=== PATIENT | female | born 1950 | race Caucasian/White ===

== ENCOUNTER 2016-08-30 03:43 | Inpatient (IN) | payer BC, OTHER ==
[2016-08-30 04:06] VITALS: BMI 39.6
[2016-08-30] MEDS ORDERED: KETOROLAC TROMETHAMINE 30 MG/1 ML VIAL IVPUSH ONE (04:13)
--- NOTE | 2016-08-30 04:13 | PDOC ---
History of Present Illness <Marquise Alcantara - Last Filed: 08/30/16 07:02> - History of Present Illness Initial Comments: 08/30/16 04:58 The patient is a 66 year old female, with a significant past medical history of COPD, hypertension, cardiac stents, diabetes, UTI, and kidney stones, who presents to the emergency department with left flank pain and nausea today. She reports this pain feels just like her experience with kidney stones, however, states she has never had a kidney stone to the left side. She reports a couple episodes of vomiting today. She denies chest pain, shortness of breath, headache and dizziness. She denies fever, chills, diarrhea and constipation. She denies dysuria, frequency, urgency and hematuria. Allergies: ciprofloxacin, nitrofurantoin, latex Social history: former tobacco use <Gilda Marie - Last Filed: 08/30/16 07:05> - General Chief Complaint: Pain Stated Complaint: STOMACH ACHE/BACK PAIN Past History - Past Medical History COPD: Yes Diabetes: Yes HTN: Yes - Surgical History Appendectomy: Yes Cholecystectomy: Yes - Psycho/Social/Smoking Cessation Hx Suicidal Ideation: No Smoking History: Never smoked Have you smoked in the past 12 months: No If you are a former smoker, when did you quit?: 8 years ago Information on smoking cessation initiated: No Hx Alcohol Use: No Drug/Substance Use Hx: No Substance Use Type: None <Marquise Alcantara - Last Filed: 08/30/16 07:02> <Gilda Marie - Last Filed: 08/30/16 07:05> - Past Medical History Allergies/Adverse Reactions: Allergies Allergy/AdvReac Type Severity Reaction Status Date / Time ciprofloxacin [From Cipro] Allergy Severe Verified 08/30/16 04:02 ciprofloxacin HCl Allergy Severe Verified 08/30/16 04:02 [From Cipro] nitrofurantoin Allergy Severe Verified 08/30/16 04:02 ticagrelor [From Brilinta] Allergy Severe Verified 08/30/16 05:00 latex Allergy Verified 08/30/16 04:05 sulfamethoxazole Allergy Verified 08/30/16 05:00 [From Bactrim] trimethoprim [From Bactrim] Allergy Verified 08/30/16 05:00 Home Medications: Ambulatory Orders Metoprolol Succinate 50 mg PO DAILY 01/14/14 Glipizide [Glipizide ER] 5 mg PO BID 08/15/15 Metformin HCl [Glucophage] 1,000 mg PO BID 08/15/15 Pantoprazole Sodium [Protonix -] 20 mg PO DAILY #20 tablet.ec 08/21/15 Aspirin [ASA -] 81 mg PO DAILY 08/30/16 Insulin Degludec [Tresiba Flextouch U-100] 80 unit SQ ASDIR 08/30/16 Rosuvastatin [Crestor -] 5 mg PO HS 08/30/16 Review of Systems - Review of Systems Able to Perform ROS?: Yes Comments:: 08/30/16 04:59 CONSTITUTIONAL: Absent: fever, chills, diaphoresis, generalized weakness, malaise, loss of appetite HEENT: Absent: rhinorrhea, nasal congestion, throat pain, throat swelling, difficulty swallowing, mouth swelling, ear pain, eye pain, visual Changes CARDIOVASCULAR: Absent: chest pain, syncope, palpitations, irregular heart rate, lightheadedness , peripheral edema RESPIRATORY: Absent: cough, shortness of breath, dyspnea with exertion, orthopnea, wheezing, stridor, hemoptysis GASTROINTESTINAL: (+) nausea, vomiting. Absent: abdominal pain, abdominal distension, diarrhea, constipation, melena, hematochezia GENITOURINARY: (+) Left flank pain. Absent: dysuria, frequency, urgency, hesitancy, hematuria, genital pain MUSCULOSKELETAL: Absent: myalgia, arthralgia, joint swelling SKIN: Absent: rash, itching, pallor HEMATOLOGIC/IMMUNOLOGIC: Absent: easy bleeding, easy bruising, lymphadenopathy, frequent infections ENDOCRINE: Absent: unexplained weight gain, unexplained weight loss, heat intolerance, cold intolerance NEUROLOGIC: Absent: headache, focal weakness or paresthesias, dizziness, unsteady gait, seizure, mental status changes, bladder or bowel incontinence PSYCHIATRIC: Absent: anxiety, depression, suicidal or homicidal ideation, hallucinations. <Gilda Marie - Last Filed: 08/30/16 07:05> *Physical Exam - Vital Signs Last Vital Signs Temp Pulse Resp BP Pulse Ox 98.4 F 70 14 165/73 93 L 08/30/16 04:03 08/30/16 04:03 08/30/16 04:03 08/30/16 04:03 08/30/16 04:03 <Marquise Alcantara - Last Filed: 08/30/16 07:02> - Vital Signs Last Vital Signs Temp Pulse Resp BP Pulse Ox 98.4 F 70 14 165/73 93 L 08/30/16 04:03 08/30/16 04:03 08/30/16 04:03 08/30/16 04:03 08/30/16 04:03 - Physical Exam Comments: 08/30/16 05:00 GENERAL: Well developed, well nourished. Awake and alert. No acute distress. HEENT: Normocephalic, atraumatic. PERRLA, EOMI. No conjunctival pallor. Sclera are non- icteric. Moist mucous membranes. Oropharynx is clear. NECK: Supple. Full ROM. No JVD. Carotid pulses 2+ and symmetric, without bruits. No thyromegaly. No lymphadenopathy. CARDIOVASCULAR: Regular rate and rhythm. No murmurs, rubs, or gallops. Distal pulses are 2+ and symmetric. PULMONARY: No evidence of respiratory distress. Lungs clear to auscultation bilaterally. No wheezing, rales or rhonchi. ABDOMINAL: Soft. Non-tender. Non-distended. No rebound or guarding. No organomegaly. Normoactive bowel sounds. MUSCULOSKELETAL (+) Left CVA tenderness. Normal range of motion at all joints. No bony deformities or tenderness. EXTREMITIES: No cyanosis. No clubbing. No edema. No calf tenderness. SKIN: Warm and dry. Normal capillary refill. No rashes. No jaundice. NEUROLOGICAL: Alert, awake, appropriate. Cranial nerves 2-12 intact. Normoreflexic in the upper and lower extremities. Normal speech. Toes are down-going bilaterally. Gait is normal without ataxia. PSYCHIATRIC: Cooperative. Good eye contact. Appropriate mood and affect. <Gilda Marie - Last Filed: 08/30/16 07:05> ED Treatment Course - LABORATORY CBC & Chemistry Diagram: 08/30/16 04:21 08/30/16 04:21 <Marquise Alcantara - Last Filed: 08/30/16 07:02> - LABORATORY CBC & Chemistry Diagram: 08/30/16 04:21 08/30/16 04:21 - RADIOLOGY Radiograph Interpretation: 08/30/16 06:48 EXAM: CT abdomen and pelvis without contrast was read by Dusty Ramires at 06:27 EST FINDINGS: Positive for a 3.3 mm distal left ureteral stone approximately 2.5 cm proximal to the left UVJ. It obstructs and causes moderate left hydronephrosis/ hydroureter with perinephric stranding. There are also nonobstructing left renal stones. Nonobstructing right renal stones noted but no right urinary tract obstruction. There are also few stones in the posterior urinary bladder lumen measuring in the 2.75-3 cm range. They may have passed previously from the ureters. Note made of a fatty liver. Periumbilical hernia containing no bowel. Sigmoid/left colon diverticulosis. No diverticulitis. No other acute intra-abdominal abnormalities. - Medications Given in the ED: ED Medications Discontinued Medications Generic Name Dose Route Start Last Admin Trade Name Freq PRN Reason Stop Dose Admin Ketorolac Tromethamine 30 mg 08/30/16 04:13 08/30/16 04:55 Toradol Injection - IVPUSH 08/30/16 04:14 30 mg ONCE ONE Administration <Gilda Marie - Last Filed: 08/30/16 07:05> Medical Decision Making - Medical Decision Making 08/30/16 06:47 Dr. Robb was paged at this time requesting a callback for doctor to doctor consult. 08/30/16 07:04 Dr. Robb returned the call at this time and the patient's case was discussed. He accepts the patient's admission with consult to urologist Dr. Jameson. <Gilda Marie - Last Filed: 08/30/16 07:05> *DC/Admit/Observation/Transfer - Discharge Dispostion Admit: Yes <Marquise Alcantara - Last Filed: 08/30/16 07:02> - Attestations Scribe Attestion: 08/30/16 05:01 Documentation prepared by Gilda Marie, acting as medical insurance coding specialist for Marquise Alcantara MD, MD <Gilda Marie - Last Filed: 08/30/16 07:05> Diagnosis at time of Disposition: Renal colic on left side - Referrals Referrals: Rosendo Monzon MD [Primary Care Provider] -
[2016-08-30] MEDS ORDERED: KETOROLAC TROMETHAMINE 30 MG/1 ML VIAL ONE (04:39)
[2016-08-30] MEDS: SODIUM CHLORIDE 1,000 ML IV SCH ×2 (04:55→20:01)
[2016-08-30 05:00] LABS: BASOPHIL 1.5 % (0-2.0); EOSINOPHIL 1.1 % (0-4.5); MCH 29.3 pg (25.7-33.7); MCHC 33.2 g/dl (32.0-36.0); MEAN CELL VOLUME 88.2 fl (80-96); MEAN PLT VOLUME 8.9 fl (7.5-11.1); NEUTROPHILS 69.9 % (42.8-82.8); PLATELET COUNT 168 K/MM3 (134-434); RDW 14.1 % (11.6-15.6); WHITE BLOOD COUNT 12.3 K/mm3 (4.0-10.0)
[2016-08-30] MEDS ORDERED: ONDANSETRON 4 MG/2 ML VIAL IVPUSH ONE (05:14)
[2016-08-30 05:24] LABS: ALBUMIN 3.7 g/dl (3.4-5.0); BILIRUBIN,TOTAL 0.6 mg/dL (0.2-1.0); CREATININE 1.3 mg/dL (0.55-1.02); TOT PROT 6.9 g/dl (6.4-8.2)
[2016-08-30] MEDS ORDERED: ONDANSETRON 4 MG/2 ML VIAL ONE (05:42)
[2016-08-30] MEDS ORDERED: CEFTRIAXONE 1,000 MG in DEXTROSE 5%-WATER - 50 ML IVPB ONE (06:56)
[2016-08-30] MEDS ORDERED: TAMSULOSIN HCL 0.4 MG CAP.ER.24H (FP) PO ONE (06:59)
[2016-08-30 07:15] LABS: URINE APPEARANCE CLOUDY; URINE BILIRUBIN NEGATIVE (NEGATIVE); URINE COLOR RED; URINE GLUCOSE (UA) 2+ (NEGATIVE); URINE KETONE NEGATIVE (NEGATIVE); URINE LEUK ESTERASE NEGATIVE (NEGATIVE); URINE NITRITE NEGATIVE (NEGATIVE); URINE UROBILINOGEN NEGATIVE E.U./dl (0.2-1.0)
[2016-08-30] MEDS ORDERED: TAMSULOSIN HCL 0.4 MG CAP.ER.24H (FP) ONE (07:42)
[2016-08-30] MEDS ORDERED: CEFTRIAXONE 50 ML ONE (07:43)
[2016-08-30 08:25] LABS: URINE BLOOD 3+ (NEGATIVE); URINE PROTEIN 2+ (NEGATIVE)
[2016-08-30 08:30] LABS: URINE BACTERIA RARE /hpf (NONE SEEN); URINE MUCUS RARE; URINE RBC 515 /hpf (0-3); URINE WBC 83 /hpf (3-5); YEAST MANY
[2016-08-30] MEDS ORDERED: oxyCODONE HCL 5 MG TABLET PO PRN (09:20)
[2016-08-30] MEDS ORDERED: morphine CARPU-JECT 2 MG/1 ML DISP.SYRIN IVPUSH PRN (09:24)
--- NOTE | 2016-08-30 09:26 | HP ---
Admitting History and Physical - Primary Care Physician PCP: Rosendo Monzon - Smoking History Smoking history: Never smoked Have you smoked in the past 12 months: No If you are a former smoker, when did you quit?: 8 years ago - Alcohol/Substance Use Hx Alcohol Use: No <Emelyn Robb - Last Filed: 08/30/16 09:25> - Primary Care Physician PCP: Rosendo Monzon - Admission Chief Complaint: Flank pain History of Present Illness: The patient is a 66 year old female, with a significant past medical history of COPD, hypertension, recent cardiac stents (2016-- patient unaware which type of stents and pt is on aspirin and plavix for the same), diabetes, UTI, and kidney stones, who presented to the emergency department with left flank pain and nausea. She reports this pain feels just like her experience with kidney stones , however, states she has never had a kidney stone to the left side. She reports a couple episodes of vomiting prior to ED presentation. She denies chest pain, shortness of breath, headache and dizziness. She denies fever, chills, diarrhea and constipation. She denies dysuria, frequency, urgency and hematuria. Patient found to have L ureter stone. Patient given abx, fluids as well as pain medications. Patient admitted to the floor. Urology consult also requested. Pt seen by me on the floor. Feels better with the pain. Chart reviewed. Denies fevers or chills. No headache or dizziness. History Source: Patient <Rachel Engel - Last Filed: 08/30/16 10:12> Home Medications <Emelyn Robb - Last Filed: 08/30/16 09:25> <Rachel Engel - Last Filed: 08/30/16 10:12> - Allergies Allergies/Adverse Reactions: Allergies Allergy/AdvReac Type Severity Reaction Status Date / Time ciprofloxacin [From Cipro] Allergy Severe Verified 08/30/16 04:02 ciprofloxacin HCl Allergy Severe Verified 08/30/16 04:02 [From Cipro] nitrofurantoin Allergy Severe Verified 08/30/16 04:02 ticagrelor [From Brilinta] Allergy Severe Verified 08/30/16 05:00 latex Allergy Verified 08/30/16 04:05 sulfamethoxazole Allergy Verified 08/30/16 05:00 [From Bactrim] trimethoprim [From Bactrim] Allergy Verified 08/30/16 05:00 - Home Medications Home Medications: Ambulatory Orders Metoprolol Succinate 50 mg PO DAILY 01/14/14 Glipizide [Glipizide ER] 5 mg PO BID 08/15/15 Metformin HCl [Glucophage] 1,000 mg PO BID 08/15/15 Pantoprazole Sodium [Protonix -] 20 mg PO DAILY #20 tablet.ec 08/21/15 Aspirin [ASA -] 81 mg PO DAILY 08/30/16 Insulin Degludec [Tresiba Flextouch U-100] 80 unit SQ ASDIR 08/30/16 Rosuvastatin [Crestor -] 5 mg PO HS 08/30/16 Review of Systems - Review of Systems Gastrointestinal: reports: Abdominal Pain (L Flank pain) <Rachel Engel - Last Filed: 08/30/16 10:12> Physical Examination Vital Signs: Vital Signs Temperature 98.4 F 08/30/16 04:03 Pulse Rate 78 08/30/16 08:55 Respiratory Rate 17 08/30/16 08:55 Blood Pressure 149/80 08/30/16 08:55 O2 Sat by Pulse Oximetry (%) 98 08/30/16 08:55 <Emelyn Robb - Last Filed: 08/30/16 09:25> Vital Signs: Vital Signs Temperature 98.4 F 08/30/16 04:03 Pulse Rate 78 08/30/16 08:55 Respiratory Rate 17 08/30/16 08:55 Blood Pressure 149/80 08/30/16 08:55 O2 Sat by Pulse Oximetry (%) 98 08/30/16 08:55 Constitutional: Yes: No Distress, Calm, Obese Eyes: Yes: Conjunctiva Clear HENT: Yes: WNL Neck: Yes: Supple Cardiovascular: Yes: Regular Rate and Rhythm Respiratory: Yes: CTA Bilaterally Gastrointestinal: Yes: Soft, Abdomen, Obese Edema: No Neurological: Yes: Alert <Rachel Engel - Last Filed: 08/30/16 10:12> Imaging - Results Cat Scan: Report Reviewed <Rachel Engel - Last Filed: 08/30/16 10:12> Problem List - Problems (1) Renal colic on left side Code(s): N23 - UNSPECIFIED RENAL COLIC (2) HTN (hypertension) Code(s): I10 - ESSENTIAL (PRIMARY) HYPERTENSION (3) IDDM (insulin dependent diabetes mellitus) Code(s): E11.9 - TYPE 2 DIABETES MELLITUS WITHOUT COMPLICATIONS Z79.4 - SENIOR CARE (CURRENT) USE OF INSULIN (4) Obesity Code(s): E66.9 - OBESITY, UNSPECIFIED (5) Coronary artery disease Code(s): I25.10 - ATHSCL HEART DISEASE OF [place] CORONARY ARTERY W/O ANG PCTRS <Rachel Engel - Last Filed: 08/30/16 10:12> Assessment/Plan Admit to Med Surg. Fluids. Abx. Pain control Urology consult Monitor blood sugar. Called patient's resource director Dr. Ramsay-- [phone] regarding history of CAD and what type of stents. As patient is on aspirin and plavix. Message left for physician to call back. Will follow DVT Ppx EKG and CXR ordered as was not ordered in the ED. Documentation prepared by Rachel Engel, acting as a medical imaging technologist for Emelyn Robb MD. <Rachel Engel - Last Filed: 08/30/16 10:12>
[2016-08-30] MEDS ORDERED: ONDANSETRON 4 MG/2 ML VIAL IVPB PRN (09:54)
[2016-08-30] MEDS: METOPROLOL SUCCINATE 50 MG TAB.SR.24H (FP) PO SCH (10:14)
[2016-08-30] MEDS: HEPARIN NA (PORCINE) 5,000 UNITS/ML 1ML VIAL SQ SCH ×2 (10:14→22:03)
[2016-08-30] MEDS: PANTOPRAZOLE 20 MG TABLET (FP) PO SCH (10:14)
[2016-08-30] MEDS ORDERED: ZOLPIDEM TARTRATE 5 MG TABLET PO PRN (10:25)
[2016-08-30] MEDS: ASPIRIN COATED 81 MG TABLET.EC PO SCH (11:08)
[2016-08-30] MEDS: RAMIPRIL 5 MG CAPSULE (FP) PO SCH (11:08)
[2016-08-30] MEDS: CLOPIDOGREL BISULFATE 75 MG TABLET (FP) PO SCH (11:08)
--- NOTE | 2016-08-30 11:56 | EKG ---
Test Reason : Blood Pressure : / mmHG Vent. Rate : 073 BPM Atrial Rate : 073 BPM P-R Int : 182 ms QRS Dur : 086 ms QT Int : 410 ms P-R-T Axes : 040 048 064 degrees QTc Int : 451 ms NORMAL SINUS RHYTHM NORMAL ECG WHEN COMPARED WITH ECG OF 15-AUG-2015 18:02, NO SIGNIFICANT CHANGE WAS FOUND Confirmed by AYAN CHINCHILLA MD ([id number]) on 08/30/2016 11:55:56 AM Referred By: DENIZ BOONE Confirmed By:AYAN CHINCHILLA MD
[2016-08-30] MEDS: INSULIN SLIDING SCALE (NOVOLOG) 1 VIAL SQ SCH ×3 (12:29→22:11)
[2016-08-30] MEDS: KETOROLAC TROMETHAMINE 30 MG/1 ML VIAL IVPUSH SCH (18:14)
[2016-08-30] MEDS ORDERED: INSULIN DETEMIR 100 UNITS/ML MDV SQ SCH ×2 (22:00)
[2016-08-30] MEDS ORDERED: ROSUVASTATIN CA 5 MG TABLET (FP) PO SCH (22:00)
[2016-08-31] MEDS: KETOROLAC TROMETHAMINE 30 MG/1 ML VIAL IVPUSH SCH ×2 (01:55→11:54)
[2016-08-31] MEDS: SODIUM CHLORIDE 1,000 ML IV SCH (05:30)
[2016-08-31] MEDS: INSULIN SLIDING SCALE (NOVOLOG) 1 VIAL SQ SCH (06:39)
[2016-08-31] MEDS ORDERED: PT OWN MED DRAWER 7, Y5N ONE (06:44)
[2016-08-31] MEDS ORDERED: INSULIN DETEMIR 100 UNITS/ML MDV SQ ONE (06:44)
[2016-08-31] MEDS ORDERED: INSULIN (NOVOLOG) ASPART 100 UNITS/ML 10ML VIAL ONE (06:44)
[2016-08-31 07:20] LABS: BASOPHIL 0.6 % (0-2.0); EOSINOPHIL 2.4 % (0-4.5); MCH 29.4 pg (25.7-33.7); MCHC 33.5 g/dl (32.0-36.0); MEAN CELL VOLUME 87.8 fl (80-96); MEAN PLT VOLUME 8.7 fl (7.5-11.1); NEUTROPHILS 46.7 % (42.8-82.8); PLATELET COUNT 121 K/MM3 (134-434); RDW 13.7 % (11.6-15.6); WHITE BLOOD COUNT 7.7 K/mm3 (4.0-10.0)
[2016-08-31 07:36] LABS: ALBUMIN 3.2 g/dl (3.4-5.0); BILIRUBIN,TOTAL 0.7 mg/dL (0.2-1.0); CALCIUM 8.3 mg/dL (8.5-10.1); CREATININE 1.3 mg/dL (0.55-1.02); TOT PROT 5.9 g/dl (6.4-8.2)
[2016-08-31 09:41] VITALS: BP 160/79; PULSE 92; TEMP 97
[2016-08-31] MEDS ORDERED: CEFTRIAXONE 50 ML IVPB SCH (10:00)
[2016-08-31] MEDS: RAMIPRIL 5 MG CAPSULE (FP) PO SCH (10:30)
[2016-08-31] MEDS: HEPARIN NA (PORCINE) 5,000 UNITS/ML 1ML VIAL SQ SCH (10:30)
[2016-08-31] MEDS: ASPIRIN COATED 81 MG TABLET.EC PO SCH (10:30)
[2016-08-31] MEDS: PANTOPRAZOLE 20 MG TABLET (FP) PO SCH (10:30)
[2016-08-31] MEDS: METOPROLOL SUCCINATE 50 MG TAB.SR.24H (FP) PO SCH (10:30)
--- NOTE | 2016-08-31 10:35 | DS ---
Physical Examination Vital Signs: Vital Signs Temperature 97.0 F L 08/31/16 09:40 Pulse Rate 92 H 08/31/16 09:40 Respiratory Rate 20 08/31/16 09:40 Blood Pressure 160/79 08/31/16 09:40 O2 Sat by Pulse Oximetry (%) 96 08/30/16 21:00 Constitutional: Yes: No Distress, Calm Cardiovascular: Yes: Regular Rate and Rhythm Respiratory: Yes: CTA Bilaterally Gastrointestinal: Yes: Normal Bowel Sounds, Soft, Abdomen, Obese. No: Distention, Tenderness Renal/: No: CVA Tenderness - Left, CVA Tenderness - Right Edema: No Labs: CBC, BMP 08/31/16 06:00 08/31/16 06:00 Discharge Summary Reason For Visit: RENAL COLIC ON LEFT SIDE Current Active Problems Coronary artery disease (Acute) Renal colic on left side (Acute) Hospital Course: ER HISTORY - Admission Chief Complaint: Flank pain History of Present Illness: The patient is a 66 year old female, with a significant past medical history of COPD, hypertension, recent cardiac stents (2015-- patient unaware which type of stents and pt is on aspirin and plavix for the same), diabetes, UTI, and kidney stones, who presented to the emergency department with left flank pain and nausea. She reports this pain feels just like her experience with kidney stones , however, states she has never had a kidney stone to the left side. She reports a couple episodes of vomiting prior to ED presentation. She denies chest pain, shortness of breath, headache and dizziness. She denies fever, chills, diarrhea and constipation. She denies dysuria, frequency, urgency and hematuria. Patient found to have L ureter stone. Patient given abx, fluids as well as pain medications. Patient admitted to the floor. Urology consult also requested. Pt seen by me on the floor. Feels better with the pain. Chart reviewed. Denies fevers or chills. No headache or dizziness. Pt seen by me today, she denies any pain , denies passing stones in urine. Known h/o kidney stones. Started on iv Ceftriaxone and IV fluids She has unfortunately a recent in the family and wants to go home. She does not have any pain now . I have spoken to Dr Ng who will be coming to see the pt today and pt will need to follow up as an outpt I have advised her to return to ER if she has any severe pain , high fever She will be discharged home on oral antibiotics and Oxycodone for pain control- - HCS verified Condition: Stable - Instructions Referrals: Mathew Jameson MD [Staff Physician] - Rosendo Monzon MD [Primary Care Provider] - Disposition: HOME - Home Medications Comprehensive Discharge Medication List: Ambulatory Orders Metoprolol Succinate 50 mg PO DAILY 01/14/14 Glipizide [Glipizide ER] 5 mg PO BID 08/15/15 Metformin HCl [Glucophage] 1,000 mg PO BID 08/15/15 Pantoprazole Sodium [Protonix -] 20 mg PO DAILY #20 tablet.ec 08/21/15 Aspirin [ASA -] 81 mg PO DAILY 08/30/16 Insulin Degludec [Tresiba Flextouch U-100] 80 unit SQ ASDIR 08/30/16 Rosuvastatin [Crestor -] 5 mg PO HS 08/30/16 Cefuroxime Axetil [Ceftin -] 500 mg PO Q12H #14 tablet 08/31/16 Oxycodone HCl [Roxicodone -] 5 mg PO Q4H PRN #30 tablet MDD 4 08/31/16
--- NOTE | 2016-08-31 11:03 | CON.GU ---
Consult Consult Specialty:: Urology Reason for Consultation:: Left renal colic - History Source History Provided By: Patient, Medical Record - Past Medical History ...: No - Alcohol/Substance Use Hx Alcohol Use: No - Smoking History Smoking history: Never smoked Have you smoked in the past 12 months: No If you are a former smoker, when did you quit?: 8 years ago Home Medications - Allergies Allergies/Adverse Reactions: Allergies Allergy/AdvReac Type Severity Reaction Status Date / Time ciprofloxacin [From Cipro] Allergy Severe Verified 08/30/16 04:02 ciprofloxacin HCl Allergy Severe Verified 08/30/16 04:02 [From Cipro] nitrofurantoin Allergy Severe Verified 08/30/16 04:02 ticagrelor [From Brilinta] Allergy Severe Verified 08/30/16 05:00 latex Allergy Verified 08/30/16 04:05 sulfamethoxazole Allergy Verified 08/30/16 05:00 [From Bactrim] trimethoprim [From Bactrim] Allergy Verified 08/30/16 05:00 morphine AdvReac Mild Itching Verified 08/30/16 10:23 - Home Medications Home Medications: Ambulatory Orders Metoprolol Succinate 50 mg PO DAILY 01/14/14 Glipizide [Glipizide ER] 5 mg PO BID 08/15/15 Metformin HCl [Glucophage] 1,000 mg PO BID 08/15/15 Pantoprazole Sodium [Protonix -] 20 mg PO DAILY #20 tablet.ec 08/21/15 Aspirin [ASA -] 81 mg PO DAILY 08/30/16 Insulin Degludec [Tresiba Flextouch U-100] 80 unit SQ ASDIR 08/30/16 Rosuvastatin [Crestor -] 5 mg PO HS 08/30/16 Cefuroxime Axetil [Ceftin -] 500 mg PO Q12H #14 tablet 08/31/16 Oxycodone HCl [Roxicodone -] 5 mg PO Q4H PRN #30 tablet MDD 4 08/31/16 Physical Exam- Vital Signs: Vital Signs Temperature 97.0 F L 08/31/16 09:40 Pulse Rate 92 H 08/31/16 09:40 Respiratory Rate 20 08/31/16 09:40 Blood Pressure 160/79 08/31/16 09:40 O2 Sat by Pulse Oximetry (%) 96 08/30/16 21:00 Kidneys: Yes: Flank Pain Left Labs: CBC, BMP 08/31/16 06:00 08/31/16 06:00 Imaging - Results Cat Scan: Report Reviewed, Image Reviewed Assessment/Plan B/L renal calc Left flank pain w CT evidence of 3.5 mm distal ureteral stone Pt no signs of sepsis Grandson yesterday pt requesting to be d/c for services/family time Instructed to come by office tomorrow and arrange litho next week return for fever chills n/v or worsening pain
[2016-08-31] MEDS: CLOPIDOGREL BISULFATE 75 MG TABLET (FP) PO SCH (11:04)
== END 2016-08-31 13:54 | disposition home or self-care (01) | DRG 694 ==
LOC: JER 03:43 → JERBED 07:10 → J8W 09:00 → J7W 15:07
PROVIDERS: ADMIT Internal Medicine; ATTEND Internal Medicine
DX: N13.2 Hydronephrosis with renal and ureteral calculous obstruction (principal); J44.9 Chronic obstructive pulmonary disease, unspecified; I25.10 Atherosclerotic heart disease of native coronary artery without angina pectoris; Z95.5 Presence of coronary angioplasty implant and graft; Z87.891 Personal history of nicotine dependence; E11.9 Type 2 diabetes mellitus without complications; Z79.4 Long term (current) use of insulin; E66.9 Obesity, unspecified; Z68.39 Body mass index [BMI] 39.0-39.9, adult
CPT/HCPCS: 36415; 71020-TC; 74176-TC; 80053; 81003; 81015; 85025; 87086; 93005; 93010; 94010; 99285-25; J1644

== ENCOUNTER 2016-10-05 08:28 | Day surgery (SDC) | payer OTHER ==
[2016-09-23 17:09] VITALS: BMI 40.6
[~2016-10-05 08:28] MED LIST: ceFAZolin SODIUM 1 GM VIAL IVPB ONE
[2016-10-05] MEDS ORDERED: MIDAZOLAM HCL 2 MG/2 ML SINGLE DOSE VIAL ONE (09:52)
--- NOTE | 2016-10-05 09:55 | OP ---
Operative Note - Note: Operative Date: 10/05/16 Pre-Operative Diagnosis: Left renal calculus Operation: Left ESWL Post-Operative Diagnosis: Same as Pre-op Surgeon: Elmer Ng MD. Anesthesia: General
[2016-10-05] MEDS ORDERED: PROPOFOL 20 ML ONE (10:07)
[2016-10-05] MEDS ORDERED: ceFAZolin SODIUM 1 GM VIAL ONE (10:10)
[2016-10-05] MEDS ORDERED: ceFAZolin SODIUM 1 GM VIAL IVPB ONE (10:11)
[2016-10-05] MEDS ORDERED: ONDANSETRON 4 MG/2 ML VIAL IVPUSH PRN (10:25)
[2016-10-05] MEDS ORDERED: ACETAMINOPHEN 325 MG TABLET (FP) PO PRN (10:25)
[2016-10-05] MEDS ORDERED: oxyCODONE HCL 5 MG TABLET PO PRN (10:25)
[2016-10-05] MEDS ORDERED: LACTATED RINGERS SOLUTION 1,000 ML IV SCH (10:30)
[2016-10-05 12:22] VITALS: TEMP 97.8
[2016-10-05 14:38] VITALS: BP 121/63; PULSE 60
--- NOTE | 2016-10-06 07:17 | OP ---
DATE OF OPERATION: 10/05/2016 SURGEON: Elmer Ng MD PREOPERATIVE DIAGNOSIS: Left renal calculus. POSTOPERATIVE DIAGNOSIS: Left renal calculus. PROCEDURE: Left lithotripsy. HISTORY: This is a very pleasant 66-year-old female with a history of recurrent renal calculi bilaterally. She was noted to have some small stone fragments on the right side preoperatively. At this time, she presents for treatment of the left sided stone, which is approximately 6 cm in size, with associated 3-mm fragment. Risks and benefits of treatment and alternative treatments including observation were discussed with the patient. All questions were answered. BRIEF OPERATIVE NOTE: The patient was brought to the operating room, placed in supine position. Once general anesthesia was administered, the stone was localized using 3D fluoroscopy and sonography. Intravenous antibiotics were given. The lithotripter was used to deliver approximately 2500 shocks in electromagnetic fashion. The patient tolerated the procedure well. The stone appeared to fragment well radiographically. Patient was brought to the recovery room in stable and satisfactory condition. ELMER NG M.D. GUNNAR/[id number]
== END 2016-10-05 13:25 | disposition home or self-care (01) ==
LOC: JASU-SURG 08:28
PROVIDERS: ATTEND Urology
PROC: 0TF4XZZ Fragmentation in Left Kidney Pelvis, External Approach (ICD-10-PCS; principal; 2016-10-05 09:45)
DX: N20.0 Calculus of kidney (principal)
CPT/HCPCS: 94760

== ENCOUNTER 2017-11-07 20:44 | Inpatient (IN) | payer OTHER ==
--- NOTE | 2017-11-07 21:01 | PDOC ---
Rapid Medical Evaluation Medical Evaluation: Allergies Allergy/AdvReac Type Severity Reaction Status Date / Time ciprofloxacin [From Cipro] Allergy Severe "NAUSEA/VOM Verified 10/05/16 09:06 ITING" nitrofurantoin Allergy Severe Verified 10/05/16 09:06 ticagrelor [From Brilinta] Allergy Severe "KIDNEY Verified 10/05/16 09:06 FAILURE" latex Allergy "RASH" Verified 10/05/16 09:06 sulfamethoxazole Allergy "VOMITING" Verified 10/05/16 09:06 [From Bactrim] trimethoprim [From Bactrim] Allergy Verified 10/05/16 09:06 morphine AdvReac Mild "VOMITING Verified 10/05/16 09:06 AND ITCHINESS, RASH" TAPE Allergy "RASH" Uncoded 10/05/16 09:06 11/07/17 20:55 I have performed a brief in-person evaluation of this patient. The patient presents with a chief complaint of: abd pain since yesterday, worsening x 1 day, saw urgent care today, "got blood work and CT scane and that I have to go to the ER." +nausea, 2 episodes of vomiting. denies diarrhea. denies pain now Pertinent physical exam findings: I have ordered the following:labs, ua, uc The patient will proceed to the ED for further evaluation. Discharge Disposition - Diagnosis Urinary problem - Referrals - Patient Instructions - Post Discharge Activity
[2017-11-07 21:50] LABS: BASO % 0.8 % (0-2.0); EOS % 1.1 % (0-4.5); HEMATOCRIT 38.3 % (32.4-45.2); LYMPH % 25.5 % (8-40); MCH 30.5 pg (25.7-33.7); MCHC 33.9 g/dl (32.0-36.0); MEAN PLT VOLUME 8.7 fl (7.5-11.1); MONO % 8.1 % (3.8-10.2); NEUT % 64.5 % (42.8-82.8); PLATELET COUNT 175 K/MM3 (134-434); RBC 4.25 M/mm3 (3.60-5.2); RDW 14.5 % (11.6-15.6); WHITE BLOOD COUNT 13.1 K/mm3 (4.0-10.0)
[2017-11-07 22:06] LABS: INR 1.06 (0.82-1.09)
[2017-11-07] MEDS ORDERED: SODIUM CHLORIDE 500 ML IV STA (23:19)
[2017-11-07] MEDS ORDERED: CEFTRIAXONE 1,000 MG in DEXTROSE 5%-WATER - 50 ML IVPB STA (23:21)
[2017-11-07 23:44] LABS: URINE APPEARANCE CLOUDY; URINE BILIRUBIN NEGATIVE (<2.0 mg/dL); URINE COLOR AMBER; URINE GLUCOSE (UA) NEGATIVE (NEGATIVE); URINE KETONE NEGATIVE (NEGATIVE); URINE LEUK ESTERASE NEGATIVE (NEGATIVE); URINE NITRITE POSITIVE (NEGATIVE); URINE UROBILINOGEN 4.0 E.U/dl mg/dL (0.2-1.0)
[2017-11-07 23:47] LABS: URINE PROTEIN 2+ (NEGATIVE)
[2017-11-07] MEDS ORDERED: CEFTRIAXONE 1 GM/50 ML BAG ONE (23:51)
[2017-11-07 23:57] LABS: EPI CELLS RARE /HPF (FEW); GRANULAR CASTS 2 /lpf; URINE MUCUS RARE
--- NOTE | 2017-11-08 00:53 | PDOC ---
History of Present Illness - General History Source: Patient Exam Limitations: No Limitations - History of Present Illness Initial Comments: 11/08/17 01:03 The patient is a 67 year old female with a significant PMH of diabetes and frequent UTIs who presents to the emergency department with nausea, vomiting, left sided flank pain and groin pain since yesterday. Patient was seen earlier today at [facility] and was told she had pyelo. The patient had a CT scan done there that showed a known 1cm pulmonary nodule and bilateral nephrolithiasis with asymmetric left perirenal and ureteral edema with associated 1mm UVJ stone but without hydronephrosis. Lab work from the urgent care showed 15.00 white blood count, BUN 18, and Creatinine 1.6. The patient denies chest pain, shortness of breath, headache and dizziness. Denies fever, chills, diarrhea and constipation. Denies dysuria, frequency, urgency and hematuria. Allergies: cipro, nitrofurantoin, ticagrelor, latex, sulfa, morphine, trimethoprim Past surgical history: cholecystectomy, appendectomy Social history: No reported alcohol, drug, or cigarette use. PCP: Dr. Rosendo Monzon Urologist: Dr. Recio <Marni Tilley - Last Filed: 11/08/17 01:08> <Marni Carmona - Last Filed: 11/08/17 01:35> - General Chief Complaint: SIRS, Suspected/Possible Stated Complaint: SENT BY PCP Time Seen by Provider: 11/07/17 20:55 Past History <Marni Tilley - Last Filed: 11/08/17 01:08> - Past Medical History Cancer: Yes (RIGHT BREAST) Cardiac Disorders: (MURMUR, 2 STENTS 11/30) CVA: Yes (2MINI STROKES (5YRS AGO) NO RESIDUAL) COPD: Yes Diabetes: Yes HTN: Yes Hypercholesterolemia: Yes - Surgical History Abdominal Surgery: Yes (removal of kidney stones) Appendectomy: Yes Cardiac Surgery: Yes (stents) Cholecystectomy: Yes Lung Surgery: No Neurologic Surgery: No Orthopedic Surgery: Yes (R knee replacement) - Suicide/Smoking/Psychosocial Hx Smoking History: Former smoker Have you smoked in the past 12 months: No If you are a former smoker, when did you quit?: 8 years ago Information on smoking cessation initiated: No Hx Alcohol Use: Yes (RARELY) Drug/Substance Use Hx: No Substance Use Type: Alcohol Hx Substance Use Treatment: No <Marni Carmona - Last Filed: 11/08/17 01:35> - Past Medical History Allergies/Adverse Reactions: Allergies Allergy/AdvReac Type Severity Reaction Status Date / Time ciprofloxacin [From Cipro] Allergy Severe "NAUSEA/VOM Verified 11/07/17 21:04 ITING" nitrofurantoin Allergy Severe Verified 11/07/17 21:04 ticagrelor [From Brilinta] Allergy Severe "KIDNEY Verified 11/07/17 21:04 FAILURE" latex Allergy "RASH" Verified 11/07/17 21:04 sulfamethoxazole Allergy "VOMITING" Verified 11/07/17 21:04 [From Bactrim] trimethoprim [From Bactrim] Allergy Verified 11/07/17 21:04 morphine AdvReac Mild "VOMITING Verified 11/07/17 21:04 AND ITCHINESS, RASH" TAPE Allergy "RASH" Uncoded 11/07/17 21:04 Home Medications: Ambulatory Orders Metoprolol Succinate 50 mg PO DAILY 01/14/14 Metformin HCl [Glucophage] 1,000 mg PO BID 08/15/15 Aspirin [ASA -] 81 mg PO DAILY 08/30/16 Rosuvastatin [Crestor -] 10 mg PO HS 08/30/16 Acetaminophen [Tylenol] 650 mg PO PRN PRN 09/23/16 Insulin Lispro [Humalog] 16 unit SQ AC PRN 09/23/16 Albuterol Sulfate [Proventil HFA Inhaler -] 1 - 2 inh PO TID PRN 11/07/17 Clopidogrel Bisulfate [Plavix -] 75 mg PO DAILY 11/07/17 Diclofenac Sodium [Voltaren] 100 gm TP TID 11/07/17 Ergocalciferol [Drisdol Oral Solution -] 500,000 units PO WEEKLY 11/07/17 Estradiol [Estrace] 42.5 gm VG ASDIR 11/07/17 Fesoterodine Fumarate [Toviaz] 4 mg PO DAILY 11/07/17 Insulin Degludec [Tresiba Flextouch U-100] 110 unit SQ DAILY 11/07/17 Insulin Glargine,Hum.rec.anlog [Lantus Solostar PEN (NF)] 0 units SQ HS Olopatadine HCl [Pataday] 1 drop OU DAILY PRN 11/07/17 Oxycodone HCl/Acetaminophen [Percocet 10-325 mg Tablet] 1 each PO QID PRN Pantoprazole Sodium [Protonix -] 40 mg PO DAILY 11/07/17 Ramipril [Altace] 10 mg PO DAILY 11/07/17 Ranitidine [Zantac -] 150 mg PO BID 11/07/17 Tizanidine HCl [Zanaflex] 4 mg PO TID PRN 11/07/17 Review of Systems - Review of Systems Able to Perform ROS?: Yes Comments:: 11/08/17 01:04 A complete review of 10 out of 10 review of systems is taken and is negative apart from what is previously mentioned below and in the HPI. <Marni Tilley - Last Filed: 11/08/17 01:08> *Physical Exam - Vital Signs Last Vital Signs Temp Pulse Resp BP Pulse Ox 98.3 F 94 H 18 114/70 93 L 11/07/17 21:02 11/07/17 21:02 11/07/17 21:02 11/07/17 21:02 11/07/17 21:02 - Physical Exam Comments: 11/08/17 01:03 General Appearance: No acute distress, well nourished, well developed Head: Atraumatic Eyes: Pupils equal reactive round, extraocular movement intact Cardiac: (+) Holosystolic murmur. Regular rate and rhythm, no rubs, no gallops Lungs: Clear to auscultation bilateral, good air movement bilaterally Abdomen: (+) Suprapubic tenderness. No rebound. No guarding. Soft, nondistended , normal bowel sounds. Extremities: Full range of motion to all extremities, no cyanosis, clubbing, or edema Skin: Warm and dry, no rashes or lesions, no rash, no petechiae Neuro: AOX3; Cranial Nerves 2-12 grossly intact, Strength intact to all extremities, Sensation intact to all extremities, gait normal Psych: Normal mood, normal affect <Marni Tilley - Last Filed: 11/08/17 01:08> - Vital Signs Last Vital Signs Temp Pulse Resp BP Pulse Ox 98.3 F 94 H 18 114/70 93 L 11/07/17 21:02 11/07/17 21:02 11/07/17 21:02 11/07/17 21:02 11/07/17 21:02 <Marni Carmona - Last Filed: 11/08/17 01:35> ED Treatment Course - LABORATORY CBC & Chemistry Diagram: 11/07/17 21:35 11/07/17 21:35 - ADDITIONAL ORDERS Additional order review: Laboratory Results 11/07/17 11/07/17 11/07/17 21:43 21:35 21:35 PT with INR INR Sodium Potassium Chloride Carbon Dioxide Anion Gap BUN Creatinine Creat Clearance w eGFR Random Glucose Lactic Acid 2.6 H* Calcium Total Bilirubin AST ALT Alkaline Phosphatase Total Protein Albumin Lipase 387 Urine Color Emili Urine Appearance Cloudy Urine pH 5.0 Ur Specific [place] 1.019 Urine Protein 2+ H Urine Glucose (UA) Negative Urine Ketones Negative Urine Blood 3+ H Urine Nitrite Positive Urine Bilirubin Negative Urine Urobilinogen 4.0 e.u/dl H Ur Leukocyte Esterase Negative Urine WBC (Auto) 30 Urine RBC (Auto) 339 Ur Epithelial Cells Rare Granular Casts 2 Urine Mucus Rare 11/07/17 11/07/17 21:35 21:35 PT with INR 12.00 INR 1.06 Sodium Cancelled Potassium Cancelled Chloride Cancelled Carbon Dioxide Cancelled Anion Gap Cancelled BUN Cancelled Creatinine Cancelled Creat Clearance w eGFR Cancelled Random Glucose Cancelled Lactic Acid Calcium Cancelled Total Bilirubin Cancelled AST Cancelled ALT Cancelled Alkaline Phosphatase Cancelled Total Protein Cancelled Albumin Cancelled Lipase Urine Color Urine Appearance Urine pH Ur Specific [place] Urine Protein Urine Glucose (UA) Urine Ketones Urine Blood Urine Nitrite Urine Bilirubin Urine Urobilinogen Ur Leukocyte Esterase Urine WBC (Auto) Urine RBC (Auto) Ur Epithelial Cells Granular Casts Urine Mucus 11/07/17 21:35 RBC 4.25 MCV 90.0 MCHC 33.9 RDW 14.5 MPV 8.7 Neutrophils % 64.5 D Lymphocytes % 25.5 D Monocytes % 8.1 Eosinophils % 1.1 Basophils % 0.8 - Medications Given in the ED: ED Medications Discontinued Medications Generic Name Dose Route Start Last Admin Trade Name Freq PRN Reason Stop Dose Admin Sodium Chloride 500 mls @ 500 mls/hr 11/07/17 23:19 11/07/17 23:58 Normal Saline - IV 11/08/17 00:18 500 mls/hr ASDIR STA Administration Ceftriaxone Sodium 1,000 mg/ 50 mls @ 100 mls/hr 11/07/17 23:21 11/07/17 23: 58 Dextrose IVPB 11/07/17 23:50 100 mls/hr ONCE STA Administration <Marni Tilley - Last Filed: 11/08/17 01:08> - LABORATORY CBC & Chemistry Diagram: 11/07/17 21:35 11/08/17 00:00 - ADDITIONAL ORDERS Additional order review: Laboratory Results 11/07/17 11/07/17 11/07/17 21:43 21:35 21:35 PT with INR INR Sodium Potassium Chloride Carbon Dioxide Anion Gap BUN Creatinine Creat Clearance w eGFR Random Glucose Lactic Acid 2.6 H* Calcium Total Bilirubin AST ALT Alkaline Phosphatase Total Protein Albumin Lipase 387 Urine Color Emili Urine Appearance Cloudy Urine pH 5.0 Ur Specific [place] 1.019 Urine Protein 2+ H Urine Glucose (UA) Negative Urine Ketones Negative Urine Blood 3+ H Urine Nitrite Positive Urine Bilirubin Negative Urine Urobilinogen 4.0 e.u/dl H Ur Leukocyte Esterase Negative Urine WBC (Auto) 30 Urine RBC (Auto) 339 Ur Epithelial Cells Rare Granular Casts 2 Urine Mucus Rare 11/07/17 11/07/17 21:35 21:35 PT with INR 12.00 INR 1.06 Sodium Cancelled Potassium Cancelled Chloride Cancelled Carbon Dioxide Cancelled Anion Gap Cancelled BUN Cancelled Creatinine Cancelled Creat Clearance w eGFR Cancelled Random Glucose Cancelled Lactic Acid Calcium Cancelled Total Bilirubin Cancelled AST Cancelled ALT Cancelled Alkaline Phosphatase Cancelled Total Protein Cancelled Albumin Cancelled Lipase Urine Color Urine Appearance Urine pH Ur Specific [place] Urine Protein Urine Glucose (UA) Urine Ketones Urine Blood Urine Nitrite Urine Bilirubin Urine Urobilinogen Ur Leukocyte Esterase Urine WBC (Auto) Urine RBC (Auto) Ur Epithelial Cells Granular Casts Urine Mucus 11/07/17 21:35 RBC 4.25 MCV 90.0 MCHC 33.9 RDW 14.5 MPV 8.7 Neutrophils % 64.5 D Lymphocytes % 25.5 D Monocytes % 8.1 Eosinophils % 1.1 Basophils % 0.8 - Medications Given in the ED: ED Medications Discontinued Medications Generic Name Dose Route Start Last Admin Trade Name Freq PRN Reason Stop Dose Admin Sodium Chloride 500 mls @ 500 mls/hr 11/07/17 23:19 11/07/17 23:58 Normal Saline - IV 11/08/17 00:18 500 mls/hr ASDIR STA Administration Ceftriaxone Sodium 1,000 mg/ 50 mls @ 100 mls/hr 11/07/17 23:21 11/07/17 23: 58 Dextrose IVPB 11/07/17 23:50 100 mls/hr ONCE STA Administration <Marni Carmona - Last Filed: 11/08/17 01:35> *DC/Admit/Observation/Transfer - Attestations Scribe Attestion: 11/08/17 01:04 Documentation prepared by Marni Tilley, acting as certified court/medical interpreter for Marni Carmona MD. <Marni Tilley - Last Filed: 11/08/17 01:08> - Discharge Dispostion Admit: Yes <Marni Carmona - Last Filed: 11/08/17 01:35> Diagnosis at time of Disposition: Urinary problem, IDDM (insulin dependent diabetes mellitus), Pyelonephritis, Calculus of distal ureter Obesity Qualifiers: Obesity type: due to excess calories Obesity classification: adult class 3 ( BMI >= 40) Serious obesity comorbidity presence: without serious comorbidity Body mass index: BMI 40.0-44.9 Qualified Code(s): E66.01 - Morbid (severe) obesity due to excess calories; Z68.41 - Body mass index (BMI) 40.0-44.9, adult ; Z68.41 - Body mass index (BMI) 40.0-44.9, adult; Z68.41 - Body mass index (BMI ) 40.0-44.9, adult; Z68.41 - Body mass index (BMI) 40.0-44.9, adult - Referrals Referrals: Rosendo Monzon MD [Primary Care Provider] - - Patient Instructions - Post Discharge Activity
[2017-11-08 01:04] LABS: ALBUMIN 3.6 g/dl (3.4-5.0); ALK PHOS 65 U/L (45-117); ANION GAP 12 (8-16); BILIRUBIN,TOTAL 0.8 mg/dL (0.2-1.0); BLOOD UREA NITROGEN 25 mg/dL (7-18); CALCIUM 8.7 mg/dL (8.5-10.1); CHLORIDE 103 mmol/L (98-107); CO2 24 mmol/L (21-32); CREATININE 1.7 mg/dL (0.55-1.02); GLUCOSE,RANDOM 187 mg/dL (74-106); SGPT/ALT 27 U/L (12-78); SODIUM 139 mmol/L (136-145); TOT PROT 6.7 g/dl (6.4-8.2)
--- NOTE | 2017-11-08 01:51 | PN ---
Teaching Attending Note Name of Resident: Natasha Richardson ATTENDING PHYSICIAN STATEMENT I saw and evaluated the patient. I reviewed the resident's note and discussed the case with the resident. I agree with the resident's findings and plan as documented. SUBJECTIVE: 66 F with Pmhx. of COPD, HTN, CAD s/p Stents (2016), DM, UTI, Nephrolithiasis who presents with emesis and nausea. Also with associated left flank/groin pain which started one day ago. Notes she had gone to [facility] and was diagnosed with pyelonephritis at that [place], CT scan was done at / CT showed bilateral nephrolitiasis and 1cm pulm . nodule. Also with L. Perirenal and ureteral edema , 1mm Stone at UVJ. No hydronephrosis. Denies any fevers, chills, chest pain, pressure or shortness of breath. No N, V, D. OBJECTIVE: Physical: VS: Vital Signs Period Temp Pulse Resp BP Sys/Jackson Pulse Ox Last 24 Hr 98.3 F 94 18 114/70 93 GEN: NAD, resting in bed, AA0X3 HEENT: NCAT, PERRL, Throat without erythema or exudates CARD: RRR S1, S2 RESP: CTAB ABD:BSx4, NTD to palpation EXT: - C/C/E CBCD WBC 13.1 K/mm3 (4.0-10.0) H D 11/07/17 21:35 RBC 4.25 M/mm3 (3.60-5.2) 11/07/17 21:35 Hgb 13.0 GM/dL (10.7-15.3) 11/07/17 21:35 Hct 38.3 % (32.4-45.2) 11/07/17 21:35 MCV 90.0 fl (80-96) 11/07/17 21:35 MCHC 33.9 g/dl (32.0-36.0) 11/07/17 21:35 RDW 14.5 % (11.6-15.6) 11/07/17 21:35 Plt Count 175 K/MM3 (134-434) D 11/07/17 21:35 MPV 8.7 fl (7.5-11.1) 11/07/17 21:35 CMP Sodium 139 mmol/L (136-145) 11/08/17 00:00 Potassium mmol/L (3.5-5.1) 11/08/17 00:00 Chloride 103 mmol/L (98-107) 11/08/17 00:00 Carbon Dioxide 24 mmol/L (21-32) 11/08/17 00:00 Anion Gap 12 (8-16) 11/08/17 00:00 BUN 25 mg/dL (7-18) H 11/08/17 00:00 Creatinine 1.7 mg/dL (0.55-1.02) H 11/08/17 00:00 Creat Clearance w eGFR 29.80 (>60) 11/08/17 00:00 Random Glucose 187 mg/dL (74-106) H 11/08/17 00:00 Calcium 8.7 mg/dL (8.5-10.1) 11/08/17 00:00 Total Bilirubin 0.8 mg/dL (0.2-1.0) 11/08/17 00:00 AST U/L (15-37) 11/08/17 00:00 ALT 27 U/L (12-78) 11/08/17 00:00 Alkaline Phosphatase 65 U/L (45-117) 11/08/17 00:00 Total Protein 6.7 g/dl (6.4-8.2) 11/08/17 00:00 Albumin 3.6 g/dl (3.4-5.0) 11/08/17 00:00 Urine Test Results Urine Color Emili 11/07/17 21:43 Urine Appearance Cloudy 11/07/17 21:43 Urine pH 5.0 (5.0-8.0) 11/07/17 21:43 Ur Specific [place] 1.019 (1.001-1.035) 11/07/17 21:43 Urine Protein 2+ (NEGATIVE) H 11/07/17 21:43 Urine Glucose (UA) Negative (NEGATIVE) 11/07/17 21:43 Urine Ketones Negative (NEGATIVE) 11/07/17 21:43 Urine Blood 3+ (NEGATIVE) H 11/07/17 21:43 Urine Nitrite Positive (NEGATIVE) 11/07/17 21:43 Urine Bilirubin Negative (<2.0 mg/dL) 11/07/17 21:43 Ur Leukocyte Esterase Negative (NEGATIVE) 11/07/17 21:43 Ur Epithelial Cells Rare /HPF (FEW) 11/07/17 21:43 Urine Mucus Rare 11/07/17 21:43 Ambulatory Orders Metoprolol Succinate 50 mg PO DAILY 01/14/14 Metformin HCl [Glucophage] 1,000 mg PO BID 08/15/15 Aspirin [ASA -] 81 mg PO DAILY 08/30/16 Rosuvastatin [Crestor -] 10 mg PO HS 08/30/16 Acetaminophen [Tylenol] 650 mg PO PRN PRN 09/23/16 Insulin Lispro [Humalog] 16 unit SQ AC PRN 09/23/16 Albuterol Sulfate [Proventil HFA Inhaler -] 1 - 2 inh PO TID PRN 11/07/17 Clopidogrel Bisulfate [Plavix -] 75 mg PO DAILY 11/07/17 Diclofenac Sodium [Voltaren] 100 gm TP TID 11/07/17 Ergocalciferol [Drisdol Oral Solution -] 500,000 units PO WEEKLY 11/07/17 Estradiol [Estrace] 42.5 gm VG ASDIR 11/07/17 Fesoterodine Fumarate [Toviaz] 4 mg PO DAILY 11/07/17 Insulin Degludec [Tresiba Flextouch U-100] 110 unit SQ DAILY 11/07/17 Insulin Glargine,Hum.rec.anlog [Lantus Solostar PEN (NF)] 0 units SQ HS Olopatadine HCl [Pataday] 1 drop OU DAILY PRN 11/07/17 Oxycodone HCl/Acetaminophen [Percocet 10-325 mg Tablet] 1 each PO QID PRN Pantoprazole Sodium [Protonix -] 40 mg PO DAILY 11/07/17 Ramipril [Altace] 10 mg PO DAILY 11/07/17 Ranitidine [Zantac -] 150 mg PO BID 11/07/17 Tizanidine HCl [Zanaflex] 4 mg PO TID PRN 11/07/17 ASSESSMENT AND PLAN: 66 F with Pmhx. of COPD, HTN, DM, CAD s/p Stents (2015), DM, UTI, Nephrolithiasis who presents with nausea and vomiting 1.) Sepsis due to Pyelonephritis - Kim Cx - Ceftriaxone - Repeat LA - IVF 2.) ELKE on CKD - consult - Hold MAX - U lytes 3.) COPD - Not in Exacerbation - C/W Home meds 4.) CAD s/p Stents - EKG - C/W Home meds - ASA, BB, Plavix, Statin - Hold Max 5.) Nephrolithiasis - Flomax - Urine Strain 6.) DM - FS - RAISS - HOLD Metformin 7.) DVT ppx - Heparin [address] in Med-Sx
[2017-11-08] MEDS ORDERED: PATIENT'S OWN MEDICATION (NON-FORMULARY) (Olopatadine Hcl [Pataday] 1 DROP) OU PRN (02:05)
[2017-11-08] MEDS ORDERED: ALBUTEROL SO4 18 GM HFA INHALER IH PRN (02:05)
[2017-11-08] MEDS ORDERED: ACETAMINOPHEN 325 MG TABLET (FP) PO PRN (02:05)
[2017-11-08] MEDS ORDERED: PATIENT'S OWN MEDICATION (NON-FORMULARY) (Estradiol [Estrace] 42.5 GM) VG SCH (02:15)
--- NOTE | 2017-11-08 02:30 | HP ---
CHIEF COMPLAINT: L flank pain PCP: Dr Radha Monzon Urology: Dr Recio HISTORY OF PRESENT ILLNESS: 67yo F with a PMHx of IDDM, nephrolithiasis, and frequent UTIs who presented to the ER with one day of L sided flank pain. She presented to [facility] urgent care , was diagnosed with pyelonephritis, and sent to the ER. At the , they performed a CY scan which showed b/l non-obstructing stones w/ L perinephric edema. She had associated suprapubic pain, nausea, vomitting, chills. Denies dysuria. Sees a urologist and has had numerous workups including cysto and post- void residuals, cause of her frequent UTIs is still unknown. In the ER, she was hemodynamically stable. On route from the to the ER, her abdominal and flank pain resolved. Labs were notable for significant leukocytosis and lactic acid, with UA showing +nitrates and +wbc. The UA at [facility] showed "large" leuk esterase. She was treated w/ Rocephin 1g and given a bolus of IVD Recent Travel: Denies PAST MEDICAL HISTORY: IDDM, Nephrolithiasis, UTIs, HTN, HLD, GERD, Herniated Disc PAST SURGICAL HISTORY: Cholecystectomy, appendectomy Social History: No reported alcohol, drug, or cigarette use. Allergies: ciprofloxacin [From Cipro] Allergy (Severe, Verified 11/07/17 21:04) "NAUSEA/VOMITING" nitrofurantoin Allergy (Severe, Verified 11/07/17 21:04) ticagrelor [From Brilinta] Allergy (Severe, Verified 11/07/17 21:04) "KIDNEY FAILURE" latex Allergy (Verified 11/07/17 21:04) "RASH" sulfamethoxazole [From Bactrim] Allergy (Verified 11/07/17 21:04) "VOMITING" trimethoprim [From Bactrim] Allergy (Verified 11/07/17 21:04) morphine Adverse Reaction (Mild, Verified 11/07/17 21:04) "VOMITING AND ITCHINESS, RASH" TAPE Allergy (Uncoded 11/07/17 21:04) "RASH" HOME MEDICATIONS: Home Medications Medication Instructions Recorded Metoprolol Succinate 50 mg PO DAILY 01/14/14 Metformin HCl [Glucophage] 1,000 mg PO BID 08/15/15 Aspirin [ASA -] 81 mg PO DAILY 08/30/16 Rosuvastatin [Crestor -] 10 mg PO HS 08/30/16 Acetaminophen [Tylenol] 650 mg PO PRN PRN 09/23/16 Insulin Lispro [Humalog] 16 unit SQ AC PRN 09/23/16 Albuterol Sulfate [Proventil HFA 1 - 2 inh PO TID PRN 11/07/17 Inhaler -] Clopidogrel Bisulfate [Plavix -] 75 mg PO DAILY 11/07/17 Diclofenac Sodium [Voltaren] 100 gm TP TID 11/07/17 Ergocalciferol [Drisdol Oral 500,000 units PO WEEKLY 11/07/17 Solution -] Estradiol [Estrace] 42.5 gm VG ASDIR 11/07/17 Fesoterodine Fumarate [Toviaz] 4 mg PO DAILY 11/07/17 Insulin Degludec [Tresiba 110 unit SQ DAILY 11/07/17 Flextouch U-100] Insulin Glargine,Hum.rec.anlog 0 units SQ HS 11/07/17 [Lantus Solostar PEN (NF)] Olopatadine HCl [Pataday] 1 drop OU DAILY PRN 11/07/17 Oxycodone HCl/Acetaminophen 1 each PO QID PRN 11/07/17 [Percocet 10-325 mg Tablet] Pantoprazole Sodium [Protonix -] 40 mg PO DAILY 11/07/17 Ramipril [Altace] 10 mg PO DAILY 11/07/17 REVIEW OF SYSTEMS CONSTITUTIONAL: Absent: fever, chills, diaphoresis, generalized weakness, malaise, loss of appetite, weight change HEENT: Absent: rhinorrhea, nasal congestion, throat pain, throat swelling, difficulty swallowing, mouth swelling, ear pain, eye pain, visual changes CARDIOVASCULAR: Absent: chest pain, syncope, palpitations, irregular heart rate , lightheadedness, peripheral edema RESPIRATORY: Absent: cough, shortness of breath, dyspnea with exertion, orthopnea, wheezing, stridor, hemoptysis GASTROINTESTINAL:Absent: abdominal pain, abdominal distension, nausea, vomiting , diarrhea, constipation, melena, hematochezia GENITOURINARY: Absent: dysuria, frequency, urgency, hesitancy, hematuria, flank pain, genital pain MUSCULOSKELETAL: Absent: myalgia, arthralgia, joint swelling, back pain, neck pain SKIN: Absent: rash, itching, pallor HEMATOLOGIC/IMMUNOLOGIC: Absent: easy bleeding, easy bruising, lymphadenopathy, frequent infections ENDOCRINE:Absent: unexplained weight gain, unexplained weight loss, heat intolerance, cold intolerance NEUROLOGIC: Absent: headache, focal weakness or paresthesias, dizziness, unsteady gait, seizure, mental status changes, bladder or bowel incontinence PSYCHIATRIC: Absent: anxiety, depression, suicidal or homicidal ideation, hallucinations. PHYSICAL EXAMINATION Vital Signs Period Temp Pulse Resp BP Sys/Jackson Pulse Ox Last 24 Hr 98.3 F 94 18 114/70 93 GEN: AAOx3, NAD, Lying comfortably, not in pain HEENT: PERRLA, EOmi CV: S1, S2, RRR, 3/6 systolic ejection murmur LUNG: CTABL ABD: Soft, NT, ND, normoactive BS MSK: No edema ,no erythema, no flank tenderness NEURO: CN 2-12 intact, no msk, no sensation ASSESSMENT/PLAN: 67yo F with a PMHx of IDDM, nephrolithiasis, and frequent UTIs who presented to the ER with one day of L sided flank pain, found to have sepsis 2/2 pyelo. # Suspected Pyelonephritis -- Patient has frequent UTIs, follows w/ Urology, cause not determined murtaza. Will give Rocephin 1g daily. IVNS ordered at 100cc/hr. Trend lactic acid. Tylenol for pain. Will get Urology on board, was seen by Dr Ng in the past. # ELKE -- Likely from sepsis and infection. Urine lytes. Kidney u/s. Hold ACEi # IDDM -- Hold Tresiba for tonight since patient did not eat. Hold metformin. Continue BGMs and ISS ACHS. Diabetic diet # CAD -- Continue ASA/Plavix # HTN -- Continue Toprol XL # HLD -- Continue statin # GERD -- Continue Protonix # FEN/Ppx -- IVNS 100cc/hr, diabetic diet, SCDs # Dispo -- Admit to med/surg Case d/w Dr Espitia & Dr Debra Galan MD - [id number] Night Help Desk Assistant Visit type - Emergency Visit Emergency Visit: Yes ED Registration Date: 11/08/17 Care time: The patient presented to the Emergency Department on the above date and was hospitalized for further evaluation of their emergent condition. - New Patient This patient is new to me today: Yes Date on this admission: 11/08/17 - Critical Care Critical Care patient: No Hospitalist Screening - Colonoscopy Questionnaire Colonoscopy Questionnaire: Colonoscopy Questionnaire - Patient: 50 - 75 years old and never had a screening colonoscopy: Unknown History of colon or rectal polyps, or CA: Unknown History of IBD, Crohn's disease or UC: Unknown History of abdominal radiation therapy as a child: Unknown - Relative: 1 with colon or rectal CA, or polyps at age 60 or younger: Unknown Colon or rectal CA diagnosed at age 45 or younger: Unknown Multiple relatives with colon or rectal CA: Unknown - Outcome: Screening Result: Negative Screen
[2017-11-08] MEDS: SODIUM CHLORIDE 1,000 ML IV SCH (03:40)
[2017-11-08 03:54] VITALS: BMI 43.0
[2017-11-08] MEDS ORDERED: PATIENT'S OWN MEDICATION (NON-FORMULARY) (Diclofenac Sodium [Voltaren] 100 GM) TP SCH (06:00)
[2017-11-08] MEDS: INSULIN SLIDING SCALE (NOVOLOG) 1 VIAL SQ SCH ×4 (06:10→21:56)
[2017-11-08 07:58] LABS: BASO % 0.5 % (0-2.0); EOS % 1.5 % (0-4.5); HEMATOCRIT 34.7 % (32.4-45.2); HEMOGLOBIN 11.9 GM/dL (10.7-15.3); LYMPH % 35.2 % (8-40); MCH 30.5 pg (25.7-33.7); MCHC 34.3 g/dl (32.0-36.0); MEAN CELL VOLUME 89.1 fl (80-96); MEAN PLT VOLUME 8.5 fl (7.5-11.1); MONO % 9.2 % (3.8-10.2); NEUT % 53.6 % (42.8-82.8); PLATELET COUNT 141 K/MM3 (134-434); RDW 14.6 % (11.6-15.6); WHITE BLOOD COUNT 10.2 K/mm3 (4.0-10.0)
[2017-11-08 08:11] LABS: ALBUMIN 3.1 g/dl (3.4-5.0); BLOOD UREA NITROGEN 21 mg/dL (7-18); CHLORIDE 109 mmol/L (98-107); GLUCOSE,RANDOM 134 mg/dL (74-106); PHOSPHOROUS 4.1 mg/dL (2.5-4.9); POTASSIUM 4.4 mmol/L (3.5-5.1); SGOT/AST 24 U/L (15-37); SODIUM 141 mmol/L (136-145)
[2017-11-08 08:13] LABS: ALK PHOS 58 U/L (45-117); ANION GAP 7 (8-16); BILIRUBIN,TOTAL 0.6 mg/dL (0.2-1.0); CO2 25 mmol/L (21-32); CREATININE 1.4 mg/dL (0.55-1.02); MAGNESIUM 1.5 mg/dL (1.8-2.4); SGPT/ALT 21 U/L (12-78); TOT PROT 5.9 g/dl (6.4-8.2)
[2017-11-08] MEDS ORDERED: cefTRIAXone SODIUM 1 GM VIAL ONE (09:05)
[2017-11-08] MEDS ORDERED: DEXTROSE 5%-WATER - 50 ML IVPB ONE (09:05)
[2017-11-08] MEDS: CEFTRIAXONE 1 GM in DEXTROSE 5%-WATER - 50 ML IVPB SCH (09:12)
[2017-11-08] MEDS: TAMSULOSIN HCL 0.4 MG CAP.ER.24H (FP) PO SCH (09:13)
[2017-11-08] MEDS: ASPIRIN 81 MG CHEWABLE TABLETS PO SCH (09:13)
[2017-11-08] MEDS: CLOPIDOGREL BISULFATE 75 MG TABLET (FP) PO SCH (09:13)
[2017-11-08] MEDS: PANTOPRAZOLE 40 MG TABLET (FP) PO SCH (09:13)
--- NOTE | 2017-11-08 10:13 | EKG ---
Test Reason : Blood Pressure : / mmHG Vent. Rate : 082 BPM Atrial Rate : 082 BPM P-R Int : 170 ms QRS Dur : 084 ms QT Int : 380 ms P-R-T Axes : 069 040 084 degrees QTc Int : 443 ms NORMAL SINUS RHYTHM NORMAL ECG WHEN COMPARED WITH ECG OF 30-AUG-2016 10:36, NO SIGNIFICANT CHANGE WAS FOUND Confirmed by MD BURGER PENG ([id number]) on 11/08/2017 10:13:22 AM Referred By: Confirmed By:VIRY BURGER MD
[2017-11-08] MEDS ORDERED: MAGNESIUM 2GM/50ML STERILE WATER IVPB IVPB ONE (10:21)
[2017-11-08] MEDS ORDERED: INSULIN (NOVOLOG) ASPART 100 UNITS/ML 10ML VIAL ONE (11:22)
[2017-11-08] MEDS ORDERED: oxyCODONE HCL 5 MG TABLET PO PRN (11:25)
--- NOTE | 2017-11-08 11:27 | CON.GU ---
Consult Consult Specialty:: Reason for Consultation:: Renal colic - History of Present Illness Chief Complaint: Left flank pain - History Source History Provided By: Patient, Medical Record - Alcohol/Substance Use Hx Alcohol Use: Yes (RARELY) - Smoking History Smoking history: Former smoker Have you smoked in the past 12 months: No If you are a former smoker, when did you quit?: 8 years ago Home Medications - Allergies Allergies/Adverse Reactions: Allergies Allergy/AdvReac Type Severity Reaction Status Date / Time ciprofloxacin [From Cipro] Allergy Severe "NAUSEA/VOM Verified 11/07/17 21:04 ITING" nitrofurantoin Allergy Severe Verified 11/07/17 21:04 ticagrelor [From Brilinta] Allergy Severe "KIDNEY Verified 11/07/17 21:04 FAILURE" latex Allergy "RASH" Verified 11/07/17 21:04 sulfamethoxazole Allergy "VOMITING" Verified 11/07/17 21:04 [From Bactrim] trimethoprim [From Bactrim] Allergy Verified 11/07/17 21:04 morphine AdvReac Mild "VOMITING Verified 11/07/17 21:04 AND ITCHINESS, RASH" TAPE Allergy "RASH" Uncoded 11/07/17 21:04 - Home Medications Home Medications: Ambulatory Orders Metoprolol Succinate 50 mg PO DAILY 01/14/14 Metformin HCl [Glucophage] 1,000 mg PO BID 08/15/15 Aspirin [ASA -] 81 mg PO DAILY 08/30/16 Rosuvastatin [Crestor -] 10 mg PO HS 08/30/16 Acetaminophen [Tylenol] 650 mg PO PRN PRN 09/23/16 Insulin Lispro [Humalog] 16 unit SQ AC PRN 09/23/16 Albuterol Sulfate [Proventil HFA Inhaler -] 1 - 2 inh PO TID PRN 11/07/17 Clopidogrel Bisulfate [Plavix -] 75 mg PO DAILY 11/07/17 Diclofenac Sodium [Voltaren] 100 gm TP TID 11/07/17 Ergocalciferol [Drisdol Oral Solution -] 500,000 units PO WEEKLY 11/07/17 Estradiol [Estrace] 42.5 gm VG ASDIR 11/07/17 Fesoterodine Fumarate [Toviaz] 4 mg PO DAILY 11/07/17 Insulin Degludec [Tresiba Flextouch U-100] 110 unit SQ DAILY 11/07/17 Insulin Glargine,Hum.rec.anlog [Lantus Solostar PEN (NF)] 0 units SQ HS Olopatadine HCl [Pataday] 1 drop OU DAILY PRN 11/07/17 Oxycodone HCl/Acetaminophen [Percocet 10-325 mg Tablet] 1 each PO QID PRN Pantoprazole Sodium [Protonix -] 40 mg PO DAILY 11/07/17 Ramipril [Altace] 10 mg PO DAILY 11/07/17 Physical Exam- Vital Signs: Vital Signs Temperature 97.9 F 11/08/17 06:59 Pulse Rate 87 11/08/17 09:47 Respiratory Rate 20 11/08/17 09:47 Blood Pressure 137/63 11/08/17 09:47 O2 Sat by Pulse Oximetry (%) 98 11/08/17 03:34 Labs: CBC, BMP 11/08/17 06:47 11/08/17 06:47 Problem List - Problems (1) Calculus of distal ureter Assessment/Plan: 1 mm obstructing stone likely passed will order kub B/L non ovstucting stones will adress as opd No signs of SIRS Code(s): N20.1 - CALCULUS OF URETER
[2017-11-08] MEDS ORDERED: ROSUVASTATIN CA 10 MG TABLET (FP) PO SCH (22:00)
[2017-11-08] MEDS ORDERED: MELATONIN 5 MG TABLETS PO PRN (23:01)
[2017-11-09] MEDS: SODIUM CHLORIDE 1,000 ML IV SCH (02:30)
[2017-11-09] MEDS: INSULIN SLIDING SCALE (NOVOLOG) 1 VIAL SQ SCH ×2 (06:02→11:59)
[2017-11-09 06:26] VITALS: TEMP 97.9
[2017-11-09 07:51] LABS: BASO % 0.8 % (0-2.0); EOS % 2.2 % (0-4.5); HEMATOCRIT 32.9 % (32.4-45.2); HEMOGLOBIN 11.1 GM/dL (10.7-15.3); LYMPH % 35.6 % (8-40); MCH 30.4 pg (25.7-33.7); MCHC 33.6 g/dl (32.0-36.0); MEAN CELL VOLUME 90.5 fl (80-96); MEAN PLT VOLUME 8.6 fl (7.5-11.1); MONO % 10.6 % (3.8-10.2); NEUT % 50.8 % (42.8-82.8); PLATELET COUNT 136 K/MM3 (134-434); RBC 3.64 M/mm3 (3.60-5.2); RDW 14.5 % (11.6-15.6); WHITE BLOOD COUNT 7.3 K/mm3 (4.0-10.0)
[2017-11-09 08:06] LABS: ANION GAP 5 (8-16); BLOOD UREA NITROGEN 19 mg/dL (7-18); CALCIUM 7.9 mg/dL (8.5-10.1); CHLORIDE 110 mmol/L (98-107); CO2 25 mmol/L (21-32); GLUCOSE,RANDOM 223 mg/dL (74-106); POTASSIUM 4.6 mmol/L (3.5-5.1); SODIUM 140 mmol/L (136-145)
[2017-11-09 08:10] LABS: ALK PHOS 54 U/L (45-117); BILIRUBIN,TOTAL 0.5 mg/dL (0.2-1.0); CREATININE 1.1 mg/dL (0.55-1.02); SGOT/AST 20 U/L (15-37); SGPT/ALT 20 U/L (12-78); TOT PROT 5.7 g/dl (6.4-8.2)
[2017-11-09] MEDS ORDERED: DEXTROSE 5%-WATER - 50 ML IVPB ONE (09:14)
[2017-11-09] MEDS ORDERED: cefTRIAXone SODIUM 1 GM VIAL ONE (09:14)
[2017-11-09] MEDS: CEFTRIAXONE 1 GM in DEXTROSE 5%-WATER - 50 ML IVPB SCH (09:18)
[2017-11-09] MEDS: CLOPIDOGREL BISULFATE 75 MG TABLET (FP) PO SCH (09:19)
[2017-11-09] MEDS: ASPIRIN 81 MG CHEWABLE TABLETS PO SCH (09:19)
[2017-11-09] MEDS: TAMSULOSIN HCL 0.4 MG CAP.ER.24H (FP) PO SCH (09:19)
[2017-11-09] MEDS: PANTOPRAZOLE 40 MG TABLET (FP) PO SCH (09:19)
[2017-11-09] MEDS ORDERED: INSULIN (NOVOLOG) ASPART 100 UNITS/ML 10ML VIAL ONE (11:31)
--- NOTE | 2017-11-09 12:44 | DS ---
Physical Examination Vital Signs: Vital Signs Temperature 97.9 F 11/09/17 10:00 Pulse Rate 75 11/09/17 10:00 Respiratory Rate 20 11/09/17 10:00 Blood Pressure 128/56 11/09/17 10:00 O2 Sat by Pulse Oximetry (%) 93 L 11/09/17 09:00 Labs: CBC, BMP 11/09/17 06:57 11/09/17 06:57 Discharge Summary Reason For Visit: INSULIN DEPENDENT DIABETES MELLITUS,PYELONEPHRITIS Current Active Problems Calculus of distal ureter (Acute) IDDM (insulin dependent diabetes mellitus) (Acute) Obesity (Acute) Pyelonephritis (Acute) Urinary problem (Acute) - Instructions Referrals: Rosendo Monzon MD [Primary Care Provider] - - Home Medications Comprehensive Discharge Medication List: Ambulatory Orders Metoprolol Succinate 50 mg PO DAILY 01/14/14 Metformin HCl [Glucophage] 1,000 mg PO BID 08/15/15 Aspirin [ASA -] 81 mg PO DAILY 08/30/16 Rosuvastatin [Crestor -] 10 mg PO HS 08/30/16 Acetaminophen [Tylenol] 650 mg PO PRN PRN 09/23/16 Insulin Lispro [Humalog] 16 unit SQ AC PRN 09/23/16 Albuterol Sulfate [Proventil HFA Inhaler -] 1 - 2 inh PO TID PRN 11/07/17 Clopidogrel Bisulfate [Plavix -] 75 mg PO DAILY 11/07/17 Diclofenac Sodium [Voltaren] 100 gm TP TID 11/07/17 Ergocalciferol [Drisdol Oral Solution -] 500,000 units PO WEEKLY 11/07/17 Estradiol [Estrace] 42.5 gm VG ASDIR 11/07/17 Fesoterodine Fumarate [Toviaz] 4 mg PO DAILY 11/07/17 Insulin Degludec [Tresiba Flextouch U-100] 110 unit SQ DAILY 11/07/17 Insulin Glargine,Hum.rec.anlog [Lantus Solostar PEN (NF)] 0 units SQ HS Olopatadine HCl [Pataday] 1 drop OU DAILY PRN 11/07/17 Oxycodone HCl/Acetaminophen [Percocet 10-325 mg Tablet] 1 each PO QID PRN Pantoprazole Sodium [Protonix -] 40 mg PO DAILY 11/07/17 Ramipril [Altace] 10 mg PO DAILY 11/07/17
[2017-11-09 12:59] VITALS: BP 119/58; PULSE 73
[2017-11-09] MEDS ORDERED: INSULIN DEGLUDEC U SQ SCH (22:00)
== END 2017-11-09 14:08 | disposition home or self-care (01) | DRG 690 ==
LOC: JER 20:44 → JERBED 11-08 01:35 → J5S 11-08 03:57
PROVIDERS: ADMIT Internal Medicine; ATTEND Internal Medicine
DX: N12 Tubulo-interstitial nephritis, not specified as acute or chronic (principal); Z68.41 Body mass index [BMI] 40.0-44.9, adult; N20.1 Calculus of ureter; N17.9 Acute kidney failure, unspecified; I25.2 Old myocardial infarction; J44.9 Chronic obstructive pulmonary disease, unspecified; E78.00 Pure hypercholesterolemia, unspecified; I10 Essential (primary) hypertension; E66.01 Morbid (severe) obesity due to excess calories; E11.9 Type 2 diabetes mellitus without complications; I25.10 Atherosclerotic heart disease of native coronary artery without angina pectoris; K21.9 Gastro-esophageal reflux disease without esophagitis; Z87.891 Personal history of nicotine dependence; Z85.3 Personal history of malignant neoplasm of breast; Z95.5 Presence of coronary angioplasty implant and graft; Z96.651 Presence of right artificial knee joint; Z79.4 Long term (current) use of insulin
CPT/HCPCS: 36415; 80053; 81003; 81015; 82436; 82570; 82962; 83036; 83605; 83690; 83735; 84100; 84133; 84300; 85025; 85610; 87040; 87086; 93005; 93010; 99285-25; J7030

== ENCOUNTER 2018-05-29 06:08 | Inpatient (IN) | payer OTHER ==
[2018-05-26 11:53] VITALS: BMI 40.6
[~2018-05-29 06:08] MED LIST changes: +CEFAZOLIN 2 GM in DEXTROSE 5%-WATER - 50 ML IVPB ONE; +CELECOXIB 200 MG CAPSULE PO ONE; +GABAPENTIN 300 MG CAPSULE (FP) PO ONE; +PANTOPRAZOLE 40 MG TABLET (FP) PO ONE; +ROPIVICAINE 0.2%/MORPH PF/KETOROLAC - 51ML DISP.SYRINGE IA ONE; +TRANEXAMIC ACID 1000 MG/10 ML VIAL IVPUSH ONE; -ceFAZolin SODIUM 1 GM VIAL IVPB ONE; +oxyCODONE HCL 10 MG SUSTAINED ACTING TABLET PO ONE
[2018-05-29] MEDS ORDERED: SODIUM CHLORIDE 0.9% P/F 10 ML VIAL IJ ONE (06:55)
[2018-05-29] MEDS ORDERED: MIDAZOLAM HCL 2 MG/2 ML SINGLE DOSE VIAL ONE ×2 (06:55→09:32)
[2018-05-29] MEDS ORDERED: BUPIVACAINE LIPOSOME/PF (EXPAREL) 266 MG/20 ML VIAL ONE (06:55)
[2018-05-29] MEDS ORDERED: PANTOPRAZOLE 40 MG TABLET (FP) ONE (06:57)
[2018-05-29] MEDS ORDERED: CELECOXIB 200 MG CAPSULE ONE (06:57)
[2018-05-29] MEDS ORDERED: GABAPENTIN 300 MG CAPSULE (FP) ONE ×2 (06:57→07:09)
[2018-05-29] MEDS ORDERED: oxyCODONE HCL 10 MG SUSTAINED ACTING TABLET ONE (06:57)
[2018-05-29] MEDS ORDERED: ceFAZolin SODIUM 1 GM VIAL ONE (07:24)
[2018-05-29] MEDS ORDERED: TRANEXAMIC ACID 1000 MG/10 ML VIAL ONE (07:24)
[2018-05-29] MEDS ORDERED: VANCOMYCIN 1,000 MG VIAL (RESTRICTED TO ID ONLY) ONE (07:24)
--- NOTE | 2018-05-29 07:42 | HP ---
Admitting History and Physical - Admission Chief Complaint: left knee osteoarthritis x years History of Present Illness: 67 year old female presents today in regard to her left knee. Longstanding history of left knee osteoarthritis. Patient complains of pain, limited ROM, difficulty ambulating and difficulty with ADLs. Patient has failed conservative treatment options including PO medication, activity modification, injections and exercise programs. At this point, patient would like to proceed with surgical intervention - left total knee arthroplasty, MAKOplasty. History Source: Patient - Past Medical History Cardiovascular: Yes: CAD, HTN, Hyperlipdemia Pulmonary: Yes: Asthma Gastrointestinal: Yes: GERD ...: No Musculoskeletal: Yes: Osteoarthritis Endocrine: Yes: Diabetes Mellitus - Past Surgical History Additional Past Surgical History: See written history & physical. - Smoking History Smoking history: Former smoker Have you smoked in the past 12 months: No If you are a former smoker, when did you quit?: 8 years ago - Alcohol/Substance Use Hx Alcohol Use: Yes (RARELY) Home Medications - Allergies Allergies/Adverse Reactions: Allergies Allergy/AdvReac Type Severity Reaction Status Date / Time ciprofloxacin [From Cipro] Allergy Severe "NAUSEA/VOM Verified 04/20/18 12:47 ITING" nitrofurantoin Allergy Severe Verified 04/20/18 12:47 ticagrelor [From Brilinta] Allergy Severe "KIDNEY Verified 04/20/18 12:47 FAILURE" latex Allergy "RASH" Verified 04/20/18 12:47 sulfamethoxazole Allergy "VOMITING" Verified 04/20/18 12:47 [From Bactrim] trimethoprim [From Bactrim] Allergy Verified 04/20/18 12:47 morphine AdvReac Mild "VOMITING Verified 04/20/18 12:47 AND ITCHINESS, RASH" TAPE Allergy "RASH" Uncoded 04/20/18 12:47 - Home Medications Home Medications: Ambulatory Orders Metoprolol Succinate 50 mg PO DAILY 01/14/14 Metformin HCl [Glucophage] 1,000 mg PO BID 08/15/15 Aspirin [ASA -] 81 mg PO DAILY 08/30/16 Rosuvastatin [Crestor -] 10 mg PO DAILY 08/30/16 Insulin Lispro [Humalog] 16 unit SQ AC PRN 09/23/16 Albuterol Sulfate [Proventil HFA Inhaler -] 1 - 2 inh PO TID PRN 11/07/17 Clopidogrel Bisulfate [Plavix -] 75 mg PO DAILY 11/07/17 Insulin Degludec [Tresiba Flextouch U-100] 125 unit SQ HS 11/07/17 Ramipril [Altace] 10 mg PO DAILY 11/07/17 Liraglutide [Victoza -] 1.6 mg SQ DAILY@0700 04/20/18 Ranitidine [Zantac -] 150 mg PO BID 04/20/18 Gabapentin 300 mg PO HS PRN 05/29/18 Review of Systems - Review of Systems Musculoskeletal: reports: Crepitus (left knee), Decreased ROM (left knee), Joint Pain (left knee), Joint Swelling (left knee) Physical Examination Vital Signs: Vital Signs Temperature 98.2 F 05/29/18 06:46 Pulse Rate 72 05/29/18 06:46 Respiratory Rate 05/29/18 06:46 Blood Pressure 144/70 05/29/18 06:46 O2 Sat by Pulse Oximetry (%) Constitutional: Yes: Well Nourished, No Distress Eyes: Yes: Conjunctiva Clear HENT: Yes: Atraumatic, Normocephalic Neck: Yes: Supple Cardiovascular: Yes: Regular Rate and Rhythm Respiratory: Yes: Regular Gastrointestinal: Yes: Soft ...Rectal Exam: Yes: Deferred Musculoskeletal: Yes: Joint Stiffness (left knee), Joint Swelling (left knee) Assessment/Plan 67 year old female presents today in regard to her left knee. Longstanding history of left knee osteoarthritis. Patient complains of pain, limited ROM, difficulty ambulating and difficulty with ADLs. Patient has failed conservative treatment options including PO medication, activity modification, injections and exercise programs. At this point, patient would like to proceed with surgical intervention - left total knee arthroplasty, MAKOplasty. Pros, cons, risks, benefits and alternatives of a left total knee arthroplasty, MAKOplasty - was discussed with the patient at length. Patient confirms her understanding and consents to proceed with a left total knee arthroplasty, MAKOplasty.
[2018-05-29] MEDS ORDERED: ASPIRIN 81 MG CHEWABLE TABLETS ONE (08:03)
[2018-05-29] MEDS ORDERED: ROPIVICAINE 0.2%/MORPH PF/KETOROLAC - 51ML DISP.SYRINGE IA ONE ×3 (08:20→11:27)
[2018-05-29] MEDS ORDERED: PROPOFOL 20 ML ONE ×4 (08:59)
[2018-05-29] MEDS ORDERED: SUCCINYLCHOLINE CHLORIDE 200 MG/10 ML VIAL ONE (09:00)
[2018-05-29] MEDS ORDERED: ePHEDrine SULFATE 50 MG/1 ML AMPULE ONE (09:13)
[2018-05-29] MEDS ORDERED: ACETAMINOPHEN 1000 MG/100 ML VIAL (NON FORMULARY) IVPB ONE (11:59)
[2018-05-29] MEDS ORDERED: KETOROLAC TROMETHAMINE 30 MG/1 ML VIAL ONE (12:28)
[2018-05-29] MEDS: KETOROLAC TROMETHAMINE 30 MG/1 ML VIAL IVPUSH SCH ×2 (12:30→17:20)
[2018-05-29] MEDS ORDERED: traMADol HCL 50 MG TABLET ONE (12:30)
[2018-05-29] MEDS ORDERED: ACETAMINOPHEN INJECTION 100 ML IVPB ONE (12:30)
[2018-05-29] MEDS: traMADol HCL 50 MG TABLET PO SCH ×2 (12:30→17:20)
[2018-05-29] MEDS ORDERED: INSULIN LISPRO 16 UNIT SQ PRN (13:00)
[2018-05-29] MEDS ORDERED: ALBUTEROL SO4 8 GM HFA INHALER IH PRN ×2 (13:00→13:32)
[2018-05-29] MEDS ORDERED: ONDANSETRON 4 MG/2 ML VIAL IVPUSH PRN ×2 (13:03→13:09)
[2018-05-29] MEDS ORDERED: PROMETHAZINE HCL 25 MG/1 ML VIAL IVPUSH PRN (13:03)
[2018-05-29] MEDS ORDERED: oxyCODONE HCL 5 MG TABLET PO PRN (13:03)
[2018-05-29] MEDS ORDERED: MAG HYDROX/AL HYDROX/SIMETH 30 ML UNIT-DOSE CUP PO PRN (13:09)
[2018-05-29] MEDS ORDERED: MAGNESIUM HYDROX 2400MG/30ML ORAL SUSPENSION 30 ML CUP PO PRN (13:09)
[2018-05-29] MEDS ORDERED: LACTATED RINGERS SOLUTION 1,000 ML IV SCH (13:15)
[2018-05-29] MEDS ORDERED: CLOPIDOGREL BISULFATE 75 MG TABLET (FP) PO SCH (13:15)
--- NOTE | 2018-05-29 13:41 | OP ---
Operative Note - Note: Operative Date: 05/29/18 Pre-Operative Diagnosis: Left knee OA Operation: Left LYSSA TKA Post-Operative Diagnosis: Same as Pre-op Surgeon: Augustus Mcnamara Furniture Technician: Maida Verma Anesthesia: Spinal Estimated Blood Loss (mls): 200
[2018-05-29] MEDS: oxyCODONE HCL 5 MG TABLET PO PRN ×2 (15:21→21:23)
[2018-05-29] MEDS: INSULIN SLIDING SCALE (NOVOLOG) 1 VIAL SQ SCH (17:19)
[2018-05-29] MEDS: metFORMIN HCL 500 MG TABLET (FP) PO SCH (17:20)
[2018-05-29] MEDS: CEFAZOLIN 2 GM/D5W 2 GM/50 ML ML IVPB SCH (17:20)
[2018-05-29] MEDS: ACETAMINOPHEN 325 MG TABLET (FP) PO SCH (17:30)
[2018-05-29] MEDS ORDERED: INSULIN (NOVOLOG) ASPART 100 UNITS/ML 10ML VIAL ONE ×2 (18:48→21:05)
[2018-05-29] MEDS ORDERED: DEXAMETHASONE SOD PHOSPHATE 10 MG/1 ML VIAL IVPB ONE (20:00)
--- NOTE | 2018-05-29 20:56 | SPEC ---
DATE OF OPERATION: 05/29/2018 PREOPERATIVE DIAGNOSIS: Left knee osteoarthritis. POSTOPERATIVE DIAGNOSIS: Left knee osteoarthritis. PROCEDURE: Left total knee replacement with Makoplasty robotic navigation. ATTENDING: Augustus Mcnamara M.D. FOOD QUALITY TECHNICIAN: Laurel Kim ANESTHESIA: Spinal plus sedation. ESTIMATED BLOOD LOSS: 200 mL. COMPLICATIONS: None. DISPOSITION: The patient was transferred to the PACU in stable condition. IMPLANTS USED: Suzanne Triathlon cementless size 6 femoral and tibial components, 13-mm posterior stabilized polyethylene component, 32-mm cementless patellar component. INDICATION: This is a 67-year-old female who presents to the office complaining of severe left knee pain. She was seen and examined by Dr. Mcnamara and diagnosed with severe left knee osteoarthritis. The patient was initially treated nonoperatively with injections of medications, physical therapy, but continued to have severe pain and ambulatory dysfunction. She was therefore indicated for a left total knee replacement. The risks, benefits, and alternatives to the procedure were explained to the patient in great detail, and she elected to proceed with the surgery. On the day of surgery, the patient was taken to the operating room and placed on the OR table. Spinal anesthesia was administered by the anesthesiologist. The patient was then positioned supine on the table and all bony prominences were padded. The knee was then prepped and draped in the usual sterile fashion and intravenous antibiotics were given for infection prophylaxis. A surgical time-out was then performed with the team, and the patients identity, procedure, side, availability of implants, and the administration of antibiotics was confirmed. With the knee flexed, a midline incision was made and carried down through the subcutaneous fat to the underlying retinaculum. A medial parapatellar arthrotomy was performed. This was followed by a subperiosteal dissection of the tissue off the proximal, medial tibia. A portion of fat pad was removed from under the patellar tendon, and a small portion of fat was excised off the distal supracondylar femur. Electrocautery and an Aquamantys bipolar sealing device were used to achieve hemostasis. The knee was then flexed further and the anterior horn of the lateral meniscus was released from the midline. Next, the anterior and posterior cruciate ligaments were transected. Grade 4 changes were noted diffusely throughout the knee. Femoral and tibial checkpoints were then placed in the appropriate location using a mallet. Two parallel bicortical self-drilling pins were placed in the tibial diaphysis after making stab incisions and bluntly dissecting down to bone. Two pins were then placed in the distal supracondylar femur. The Cloudwise navigation arrays were then attached to both the femoral and tibial pins and the lower extremity was then registered to the robotic navigation device using various joint movements, as well as inputting several dozen reference points. The knee was then taken through a full range of motion with a corrective force applied. Alignment in varus/valgus as well as flexion/extension and soft tissue balance was measured in various positions. The navigation device showed a numerical and graphic representation of the soft tissue balance. The components were repositioned virtually using the software until optimal soft tissue balance was achieved on screen. Once this was accomplished, the final plan was saved and sent to the robot. Self-retaining retractors were then placed at the joint line for exposure and protection of the collateral ligaments. The robot was brought into the sterile field and registered with the navigation device. The robotic arm with attached oscillating saw blade was then used to perform femoral and tibial bone cuts as per the saved software plan. The femoral box cut was made using the appropriately sized manual cutting guide. The knee was then irrigated. Trial components were placed and the knee was taken through a full range of motion to assess soft tissue balance and alignment. The range of motion was found to be excellent and the soft tissue balance was optimal and according to plan. The knee was then put into extension and the patella everted. The synovium around the patella was circumscribed with electrocautery. A caliper was used to measure the patellar thickness and a saw was then used to resect the patella at the chondro-osseous junction. The cut surface was then sized and drilled for the appropriate patellar button, with care taken to medialize it. A trial patella was then placed and the knee was again taken through a full range of motion. The knee was found to have both good balance and good patellar tracking. All of the components were removed except the tibial base plate. The appropriate instrumentation was used to drill and punch the proximal tibia for the keel of the final component. All bony surfaces were then cleaned with pulsatile lavage and dried. Cementless Suzanne Triathlon knee replacement components were then impacted in place and found to have a stable press-fit. A trial polyethylene component was placed and the knee was again taken through a full range of motion to assess stability, balance, and patellar tracking. This was found to be optimal and the trial polyethylene was exchanged for the appropriately sized real implant. The wound was then thoroughly irrigated with normal saline. A 3-minute dilute Betadine lavage was performed. The knee was again irrigated using a pulsatile lavage device. A periarticular injection was used to locally infiltrate the capsular tissues surrounding the implant and prosthesis. Then No. 1 Polysorb and 0 VLoc 180 barbed sutures were used to close the arthrotomy. Then No. 1 Polysorb and 2-0 VLoc 90 sutures were used in the subcutaneous tissues. Then 4-0 undyed Vicryl and Dermabond skin adhesive was used to close the stab incisions made for the navigation pins. The skin was closed using both 3-0 VLoc 90 suture in a running subcuticular fashion and Dermabond skin adhesive. Once this was completed a sterile Aquacel dressing and compressive Max-wrap was applied. The patient was then awakened and taken to the PACU in stable condition. Miguelangel [id number]
[2018-05-29] MEDS: GABAPENTIN 300 MG CAPSULE (FP) PO SCH (21:13)
[2018-05-29] MEDS: RANITIDINE HCL 150 MG TABLET (FP) PO SCH (21:13)
[2018-05-29] MEDS: ROSUVASTATIN CA 10 MG TABLET (FP) PO SCH (21:13)
[2018-05-29] MEDS: ASCORBIC ACID 500 MG TABLET (FP) PO SCH (21:13)
[2018-05-29] MEDS: SENNOSIDES/DOCUSATE COMBO (SENNA PLUS) TABLET (UD) PO SCH (21:13)
[2018-05-29] MEDS ORDERED: CELECOXIB 200 MG CAPSULE PO SCH (22:00)
[2018-05-30] MEDS: ACETAMINOPHEN 325 MG TABLET (FP) PO SCH ×4 (00:40→18:33)
[2018-05-30] MEDS: KETOROLAC TROMETHAMINE 30 MG/1 ML VIAL IVPUSH SCH ×2 (01:00→06:33)
[2018-05-30] MEDS: INSULIN SLIDING SCALE (NOVOLOG) 1 VIAL SQ SCH ×5 (01:31→21:14)
[2018-05-30] MEDS: CEFAZOLIN 2 GM/D5W 2 GM/50 ML ML IVPB SCH (01:32)
[2018-05-30] MEDS ORDERED: REFRIGERATED ANITBIOTICS ONE ×2 (01:40→07:03)
[2018-05-30] MEDS: oxyCODONE HCL 5 MG TABLET PO PRN (04:12)
[2018-05-30] MEDS: traMADol HCL 50 MG TABLET PO SCH ×5 (06:33→19:51)
[2018-05-30] MEDS: metFORMIN HCL 500 MG TABLET (FP) PO SCH (06:33)
[2018-05-30] MEDS ORDERED: INSULIN (NOVOLOG) ASPART 100 UNITS/ML 10ML VIAL ONE ×2 (06:46→12:30)
[2018-05-30] MEDS: LIRAGLUTIDE 0.6 MG/0.1 ML PEN.INJCTR SQ SCH (07:15)
[2018-05-30] MEDS ORDERED: ASPIRIN 325 MG TABLET PO SCH (08:00)
[2018-05-30 08:12] LABS: HEMATOCRIT 31.5 % (32.4-45.2); HEMOGLOBIN 9.9 GM/dl (10.7-15.3); MCH 28.1 pg (25.7-33.7); MCHC 31.5 g/dl (32.0-36.0); MEAN CELL VOLUME 89.4 fl (80-96); MEAN PLT VOLUME 8.6 fl (7.5-11.1); PLATELET COUNT 176 K/MM3 (134-434); RBC 3.52 M/mm3 (3.60-5.2); RDW 13.7 % (11.6-15.6); WHITE BLOOD COUNT 11.7 K/mm3 (4.0-10.8)
[2018-05-30 08:27] LABS: ANION GAP 9 MMOL/L (8-16); BLOOD UREA NITROGEN 44 mg/dl (7-18); CALCIUM 7.6 mg/dl (8.4-10.2); CHLORIDE 103 mmol/L (98-107); CO2 18 mmol/L (22-28); CREATININE 2.2 mg/dl (0.6-1.3); GLUCOSE,RANDOM 282 mg/dl (74-106); POTASSIUM 5.4 mmol/L (3.5-5.1); SODIUM 130 mmol/L (136-145)
--- NOTE | 2018-05-30 09:55 | PN ---
Progress Note (short form) - Note Progress Note: Labs/vitals reviewed Selected Entries 05/29/18 05/30/18 05/30/18 22:00 04:12 04:13 Temperature 97.6 F 97.6 F Temperature Oral Source Pulse Rate 72 78 Respiratory 18 18 Rate Blood Pressure 99/45 L 91/38 L O2 Sat by Pulse 91 L 95 Oximetry (%) Oxygen Delivery Room Air Nasal Cannula Method Laboratory Tests 05/30/18 05/30/18 05/30/18 06:42 07:36 07:36 WBC 11.7 H Hgb 9.9 L Hct 31.5 L Plt Count 176 Sodium 130 L Potassium 5.4 H Chloride 103 Carbon Dioxide 18 L BUN 44 H Creatinine 2.2 H Creat Clearance w eGFR 22.13 POC Glucometer 283 Random Glucose 282 H Calcium 7.6 L Labs suggest ELKE D/C celebrex D/C ASA/Plavix Start Eliquis 2.5mg PO BID LR @ 125cc/hr except when in PT Hospitalist consult I will see the pt later.
[2018-05-30] MEDS ORDERED: LACTATED RINGERS SOLUTION 1,000 ML IV SCH (10:00)
[2018-05-30] MEDS ORDERED: RAMIPRIL 5 MG CAPSULE (FP) PO SCH (10:00)
[2018-05-30] MEDS: APIXABAN 2.5 MG TABLET PO SCH ×2 (10:04→21:13)
[2018-05-30] MEDS: GABAPENTIN 300 MG CAPSULE (FP) PO SCH ×2 (10:04→21:13)
[2018-05-30] MEDS ORDERED: SODIUM CHLORIDE 1,000 ML IV STA (10:05)
[2018-05-30] MEDS: PANTOPRAZOLE 40 MG TABLET (FP) PO SCH (10:05)
[2018-05-30] MEDS: MULTIVITAMINS (DAILY MVI) TABLET (FP) PO SCH (10:05)
[2018-05-30] MEDS: SENNOSIDES/DOCUSATE COMBO (SENNA PLUS) TABLET (UD) PO SCH ×2 (10:05→21:12)
[2018-05-30] MEDS: ASCORBIC ACID 500 MG TABLET (FP) PO SCH ×2 (10:06→21:13)
[2018-05-30] MEDS: RANITIDINE HCL 150 MG TABLET (FP) PO SCH ×2 (10:07→21:13)
--- NOTE | 2018-05-30 10:27 | CONSULT ---
Consultation: REQUESTING PROVIDER: Dr. Augustus Mcnamara CONSULT REQUEST: We have been asked to medically evaluate this patient for post- operative hypotension. HISTORY OF PRESENT ILLNESS: 67 year-old female with a PMH significant for HTN, HLD, CAD s/p stents, asthma/ COPD, GERD, IDDM, OA, nephrolithiasis, and recurrent UTIs. Patient is s/p left LYSSA TKA on 05/29/18. REVIEW OF SYSTEMS: CONSTITUTIONAL: Absent: fever, chills, diaphoresis, generalized weakness, malaise, loss of appetite, weight change HEENT: Absent: rhinorrhea, nasal congestion, throat pain, throat swelling, difficulty swallowing, mouth swelling, ear pain, eye pain, visual changes CARDIOVASCULAR: +lightheadedness with ambulation Absent: chest pain, syncope, palpitations, irregular heart rate, peripheral edema RESPIRATORY: Absent: cough, shortness of breath, dyspnea with exertion, orthopnea, wheezing, stridor, hemoptysis GASTROINTESTINAL: Absent: abdominal pain, abdominal distension, nausea, vomiting, diarrhea, constipation, melena, hematochezia GENITOURINARY: Absent: dysuria, frequency, urgency, hesitancy, hematuria, flank pain, genital pain MUSCULOSKELETAL: Absent: myalgia, arthralgia, joint swelling, back pain, neck pain SKIN: Absent: rash, itching, pallor HEMATOLOGIC/IMMUNOLOGIC: Absent: easy bleeding, easy bruising, lymphadenopathy, frequent infections ENDOCRINE: Absent: unexplained weight gain, unexplained weight loss, heat intolerance, cold intolerance NEUROLOGIC: Absent: headache, focal weakness or paresthesias, dizziness, unsteady gait, seizure, mental status changes, bladder or bowel incontinence PSYCHIATRIC: Absent: anxiety, depression, suicidal or homicidal ideation, hallucinations. PHYSICAL EXAMINATION Vital Signs Temperature 97.6 F 05/30/18 04:12 Pulse Rate 78 05/30/18 04:12 Respiratory Rate 18 05/30/18 04:12 Blood Pressure 91/38 L 05/30/18 04:12 O2 Sat by Pulse Oximetry (%) 95 05/30/18 04:13 GENERAL: Awake, alert, and fully oriented, in no acute distress. HEAD: Normal with no signs of trauma. EYES: Pupils equal, round and reactive to light, extraocular movements intact, sclera anicteric, conjunctiva clear. No lid lag. EARS, NOSE, THROAT: Ears normal, nares patent, oropharynx clear without exudates. Moist mucous membranes. NECK: Normal range of motion, supple without lymphadenopathy, JVD, or masses. LUNGS: Breath sounds equal, clear to auscultation bilaterally. No wheezes, and no crackles. No accessory muscle use. HEART: Regular rate and rhythm, normal S1 and S2 without murmur, rub or gallop. ABDOMEN: Soft, nontender, not distended, normoactive bowel sounds, no guarding, no rebound, no masses. No hepatomegaly or splenomegaly. MUSCULOSKELETAL: Normal range of motion at all joints. No bony deformities or tenderness. No CVA tenderness. UPPER EXTREMITIES: 2+ pulses, warm, well-perfused. No cyanosis. No clubbing. Cap refill <2 seconds. No peripheral edema. LOWER EXTREMITIES: 2+ pulses, warm, well-perfused. No calf tenderness. No peripheral edema. NEUROLOGICAL: Cranial nerves II-XII intact. Normal speech. Normal gait. PSYCHIATRIC: Cooperative. Good eye contact. Appropriate mood and affect. SKIN: Warm, dry, normal turgor, no rashes or lesions noted. Laboratory Results 05/30/18 05/30/18 07:36 07:36 WBC 11.7 H RBC 3.52 L Hgb 9.9 L Hct 31.5 L MCV 89.4 MCH 28.1 MCHC 31.5 L RDW 13.7 Plt Count 176 MPV 8.6 Sodium 130 L Potassium 5.4 H Chloride 103 Carbon Dioxide 18 L Anion Gap 9 BUN 44 H Creatinine 2.2 H Creat Clearance w eGFR 22.13 POC Glucometer Random Glucose 282 H Calcium 7.6 L Hep C Ab Diagnostic HIV 1&2 Antibody Screen HIV P24 Antigen Active Medications Generic Name Dose Route Start Last Admin Trade Name Freq PRN Reason Stop Dose Admin Acetaminophen 650 mg 05/29/18 18:30 05/30/18 06:34 Tylenol - PO 06/01/18 18:29 650 mg Q6H TJ Administration Al Hydroxide/Mg Hydroxide 30 ml 05/29/18 13:09 Mylanta Oral Suspension - PO Q4H PRN DYSPEPSIA Albuterol Sulfate 2 puff 05/29/18 13:00 Ventolin Hfa Inhaler - IH TID PRN WHEEZING Albuterol Sulfate 1 puff 05/29/18 13:32 Ventolin Hfa Inhaler - IH TID PRN WHEEZING Apixaban 2.5 mg 05/30/18 10:00 Eliquis - PO BID [facility] Ascorbic Acid 500 mg 05/29/18 22:00 05/29/18 21:13 Vitamin C - PO 500 mg BID TJ Administration Gabapentin 300 mg 05/29/18 22:00 05/29/18 21:13 Neurontin - PO 06/01/18 21:59 300 mg BID TJ Administration Lactated Ringer's 1,000 mls @ 125 mls/hr 05/30/18 10:00 Lactated Ringers Solution IV ASDIR TJ Sodium Chloride 1,000 mls @ 1,000 mls/hr 05/30/18 10:05 Normal Saline - IV 05/30/18 11:04 ASDIR STA Insulin Aspart 1 vial 05/29/18 16:30 05/30/18 07:14 Novolog Vial Sliding Scale - SQ 6 unit ACHS [facility] Administration Protocol Liraglutide 1.6 mg 05/30/18 07:00 05/30/18 07:15 Victoza - SQ 1.6 mg DAILY@0700 [facility] Administration Magnesium Hydroxide 30 ml 05/29/18 13:09 Milk Of Magnesia - PO PRN PRN CONSTIPATION Metformin HCl 1,000 mg 05/29/18 16:30 05/30/18 06:33 Glucophage - PO 1,000 mg BIDAC [facility] Administration Metoprolol Succinate 50 mg 05/30/18 10:00 Toprol Xl - PO DAILY [facility] Multivitamins/Minerals/Vitamin C 1 tab 05/30/18 10:00 Tab-A-Vit - PO DAILY [facility] Non-Formulary Medication 125 unit 05/29/18 22:00 Insulin Degludec [Tresiba Flextouch U-100] SQ HS [facility] Ondansetron HCl 4 mg 05/29/18 13:09 Zofran Injection IVPUSH Q6H PRN NAUSEA Oxycodone HCl 5 mg 05/29/18 13:03 Roxicodone - PO Q3H PRN PAIN LEVEL 1-5 Oxycodone HCl 10 mg 05/29/18 13:03 05/30/18 04:12 Roxicodone - PO 10 mg Q3H PRN Administration PAIN LEVEL 6-10 Pantoprazole Sodium 40 mg 05/30/18 10:00 Protonix - PO DAILY [facility] Ramipril 10 mg 05/30/18 10:00 Altace - PO DAILY TJ Ranitidine HCl 150 mg 05/29/18 22:00 05/29/18 21:13 Zantac - PO 150 mg BID TJ Administration Rosuvastatin Calcium 10 mg 05/29/18 22:00 05/29/18 21:13 Crestor - PO 10 mg HS TJ Administration Senna/Docusate Sodium 2 tablet 05/29/18 22:00 05/29/18 21:13 Pericolace - PO 2 tablet BID TJ Administration Tramadol HCl 50 mg 05/29/18 12:00 05/30/18 06:33 Ultram - PO 50 mg Q6H TJ Administration ASSESSMENT/PLAN: 67 year-old female with a PMH significant for HTN, HLD, CAD s/p stents, asthma/ COPD, GERD, IDDM, OA, nephrolithiasis, and recurrent UTIs. Patient is s/p left LYSSA TKA on 05/29/18. Patient noted to by hypotensive, hyponatremic, and with elevated creatinine. Left knee osteoarthritis s/p LYSSA TKA on 05/29/18 --POD #1 Hypotension --likely secondary to low volume state --NS x 1L now, then continue @ 125mL/hr --hold ramipril and Toprol XL Hyponatremia --Na 130 --IV fluids ELKE --asymptomatic; no dysuria, frequency, urgency, no flank pain --Cr 2.2, baseline 1.1 --IV fluids --hold metformin, ramipril Asthma/COPD --continue duonebs, albuterol IH GERD --continue ranitidine Dispo: We will continue to follow the patient with you. Thank you for this consultative opportunity. Visit type - Emergency Visit Emergency Visit: No - New Patient This patient is new to me today: Yes Date on this admission: 05/30/18 - Critical Care Critical Care patient: No
[2018-05-30] MEDS: SODIUM CHLORIDE 1,000 ML IV SCH (10:30)
[2018-05-30] MEDS: ALBUTEROL SO4 2.5/IPRATROPIUM 0.5 INH SOL 3 ML VIAL.NEB. NEB SCH ×3 (12:00→19:54)
[2018-05-30] MEDS: ROSUVASTATIN CA 10 MG TABLET (FP) PO SCH (21:13)
[2018-05-30] MEDS: INSULIN DEGLUDEC U SQ SCH (21:13)
[2018-05-31] MEDS: traMADol HCL 50 MG TABLET PO SCH ×4 (00:23→18:42)
[2018-05-31] MEDS: ACETAMINOPHEN 325 MG TABLET (FP) PO SCH ×4 (00:24→18:42)
[2018-05-31] MEDS ORDERED: REFRIGERATED ANITBIOTICS ONE (06:24)
[2018-05-31] MEDS: LIRAGLUTIDE 0.6 MG/0.1 ML PEN.INJCTR SQ SCH (06:26)
[2018-05-31] MEDS: INSULIN SLIDING SCALE (NOVOLOG) 1 VIAL SQ SCH ×4 (07:34→21:29)
[2018-05-31 08:42] LABS: HEMATOCRIT 28.8 % (32.4-45.2); HEMOGLOBIN 9.2 GM/dl (10.7-15.3); MCH 28.7 pg (25.7-33.7); MEAN CELL VOLUME 89.6 fl (80-96); MEAN PLT VOLUME 8.7 fl (7.5-11.1); PLATELET COUNT 165 K/MM3 (134-434); RBC 3.21 M/mm3 (3.60-5.2); RDW 13.6 % (11.6-15.6); WHITE BLOOD COUNT 11.1 K/mm3 (4.0-10.8)
[2018-05-31 08:45] LABS: ANION GAP 7 MMOL/L (8-16); BLOOD UREA NITROGEN 62 mg/dl (7-18); CALCIUM 7.5 mg/dl (8.4-10.2); CHLORIDE 105 mmol/L (98-107); CO2 19 mmol/L (22-28); CREATININE 2.1 mg/dl (0.6-1.3); GLUCOSE,RANDOM 232 mg/dl (74-106); POTASSIUM 5.7 mmol/L (3.5-5.1); SODIUM 131 mmol/L (136-145)
--- NOTE | 2018-05-31 08:52 | PN ---
Progress Note (short form) - Note Progress Note: Pt seen and examined. Doing well. Pain well controlled. Has some wheezing/ chest congestion but CXR clear. Afebrile Selected Entries 05/30/18 05/30/18 05/31/18 20:15 20:16 02:00 Temperature 97.6 F 98.1 F Pulse Rate 84 87 Respiratory 18 18 18 Rate Blood Pressure 92/61 124/43 L O2 Sat by Pulse 91 L 93 L Oximetry (%) Oxygen Delivery Room Air Method 05/31/18 06:00 Temperature 98.1 F Pulse Rate 87 Respiratory 18 Rate Blood Pressure 124/43 L O2 Sat by Pulse Oximetry (%) Oxygen Delivery Method Laboratory Tests 05/30/18 05/30/18 05/31/18 07:36 07:36 06:18 WBC 11.7 H Hgb 9.9 L Hct 31.5 L Plt Count 176 Sodium 130 L Potassium 5.4 H Chloride 103 Carbon Dioxide 18 L Anion Gap 9 BUN 44 H Creatinine 2.2 H Creat Clearance w eGFR 22.13 POC Glucometer 233 Random Glucose 282 H Calcium 7.6 L 05/31/18 05/31/18 08:05 08:05 WBC 11.1 H Hgb 9.2 L Hct 28.8 L Plt Count 165 Sodium Pending Potassium Pending Chloride Carbon Dioxide Anion Gap BUN Creatinine Creat Clearance w eGFR POC Glucometer Random Glucose Calcium Gen: NAD LLE: c/d/i, NVID A/P 67yo female POD#1 s/p L LYSSA TKA 1. PT/OOB - WBAT LLE 2. Eliquis for DVT ppx 3. Hold d/c to rehab until tomorrow because of electrolyte abnormalities and chest congestion. 4. F/U BMP. Continue IVF if creatinine still elevated. Encourage PO intake. 5. Pt may shower with assistance. 6. Hospitalist consult appreciated.
[2018-05-31 09:21] LABS: ANION GAP 8 MMOL/L (8-16); BLOOD UREA NITROGEN 62 mg/dl (7-18); CALCIUM 7.6 mg/dl (8.4-10.2); CHLORIDE 105 mmol/L (98-107); CO2 18 mmol/L (22-28); GLUCOSE,RANDOM 222 mg/dl (74-106); MAGNESIUM 1.4 mg/dL (1.8-2.4); POTASSIUM 5.2 mmol/L (3.5-5.1); SODIUM 131 mmol/L (136-145)
[2018-05-31 09:42] VITALS: TEMP 97.6
[2018-05-31] MEDS: ALBUTEROL SO4 2.5/IPRATROPIUM 0.5 INH SOL 3 ML VIAL.NEB. NEB SCH ×4 (09:42→21:28)
[2018-05-31] MEDS: PANTOPRAZOLE 40 MG TABLET (FP) PO SCH (09:42)
[2018-05-31] MEDS: MULTIVITAMINS (DAILY MVI) TABLET (FP) PO SCH (09:42)
[2018-05-31] MEDS: RANITIDINE HCL 150 MG TABLET (FP) PO SCH ×2 (09:43→21:28)
[2018-05-31] MEDS: oxyCODONE HCL 5 MG TABLET PO PRN (09:43)
[2018-05-31] MEDS: SENNOSIDES/DOCUSATE COMBO (SENNA PLUS) TABLET (UD) PO SCH ×2 (09:43→21:28)
[2018-05-31] MEDS: APIXABAN 2.5 MG TABLET PO SCH ×2 (09:43→21:28)
[2018-05-31] MEDS: GABAPENTIN 300 MG CAPSULE (FP) PO SCH ×2 (09:43→21:28)
[2018-05-31] MEDS: ASCORBIC ACID 500 MG TABLET (FP) PO SCH ×2 (09:43→21:28)
--- NOTE | 2018-05-31 12:27 | PN ---
Physical Exam: SUBJECTIVE: Patient seen and examined oob to chair. No further episodes of dizziness with ambulation. OBJECTIVE: Vital Signs Period Temp Pulse Resp BP Sys/Jackson Pulse Ox Last 24 Hr 97.5 F-98.1 F 73-87 18-18 92-124/43-61 91-93 GENERAL: The patient is awake, alert, and fully oriented, in no acute distress. LUNGS: Breath sounds equal, clear to auscultation bilaterally, no wheezes, no crackles, no accessory muscle use. HEART: Regular rate and rhythm, S1, S2 without murmur, rub or gallop. ABDOMEN: Soft, nontender, nondistended LEFT LOWER EXTREMITY: Surgicel in place NEUROLOGICAL: Cranial nerves II through XII grossly intact. Normal speech Laboratory Results - last 24 hr 05/30/18 05/30/18 05/30/18 12:22 16:37 19:49 WBC RBC Hgb Hct MCV MCH MCHC RDW Plt Count MPV Sodium Potassium Chloride Carbon Dioxide Anion Gap BUN Creatinine Creat Clearance w eGFR POC Glucometer 303 302 289 Random Glucose Calcium Magnesium 05/31/18 05/31/18 05/31/18 06:18 08:05 08:05 WBC 11.1 H RBC 3.21 L Hgb 9.2 L Hct 28.8 L MCV 89.6 MCH 28.7 MCHC 32.0 RDW 13.6 Plt Count 165 MPV 8.7 Sodium 131 L Potassium 5.7 H Chloride 105 Carbon Dioxide 19 L Anion Gap 7 L BUN 62 H Creatinine 2.1 H Creat Clearance w eGFR 23.35 POC Glucometer 233 Random Glucose 232 H Calcium 7.5 L Magnesium 05/31/18 05/31/18 08:53 11:19 WBC RBC Hgb Hct MCV MCH MCHC RDW Plt Count MPV Sodium 131 L Potassium 5.2 H Chloride 105 Carbon Dioxide 18 L Anion Gap 8 BUN 62 H Creatinine 2.0 H Creat Clearance w eGFR 24.70 POC Glucometer 217 Random Glucose 222 H Calcium 7.6 L Magnesium 1.4 L Active Medications Generic Name Dose Route Start Last Admin Trade Name Freq PRN Reason Stop Dose Admin Acetaminophen 650 mg 05/29/18 18:30 05/31/18 06:14 Tylenol - PO 06/01/18 18:29 650 mg Q6H TJ Administration Al Hydroxide/Mg Hydroxide 30 ml 05/29/18 13:09 Mylanta Oral Suspension - PO Q4H PRN DYSPEPSIA Albuterol Sulfate 1 puff 05/29/18 13:32 Ventolin Hfa Inhaler - IH TID PRN WHEEZING Albuterol/Ipratropium 1 amp 05/30/18 12:00 05/31/18 09:42 Duoneb - NEB 1 amp RQID TJ Administration Apixaban 2.5 mg 05/30/18 10:00 05/31/18 09:43 Eliquis - PO 2.5 mg BID TJ Administration Ascorbic Acid 500 mg 05/29/18 22:00 05/31/18 09:43 Vitamin C - PO 500 mg BID TJ Administration Gabapentin 300 mg 05/29/18 22:00 05/31/18 09:43 Neurontin - PO 06/01/18 21:59 300 mg BID TJ Administration Sodium Chloride 1,000 mls @ 125 mls/hr 05/30/18 11:30 05/30/18 10:30 Normal Saline - IV 125 mls/hr [facility] Administration Insulin Aspart 1 vial 05/29/18 16:30 05/31/18 07:34 Novolog Vial Sliding Scale - SQ Not Given ACHS [facility] Protocol Liraglutide 1.6 mg 05/30/18 07:00 05/31/18 06:26 Victoza - SQ 1.6 mg DAILY@0700 [facility] Administration Magnesium Hydroxide 30 ml 05/29/18 13:09 Milk Of Magnesia - PO PRN PRN CONSTIPATION Metoprolol Succinate 50 mg 05/30/18 10:00 05/30/18 10:06 Toprol Xl - PO Not Given DAILY [facility] Multivitamins/Minerals/Vitamin C 1 tab 05/30/18 10:00 05/31/18 09:42 Tab-A-Vit - PO 1 tab DAILY [facility] Administration Non-Formulary Medication 125 unit 05/29/18 22:00 05/30/18 21:13 Insulin Degludec [Tresiba Flextouch U-100] SQ 125 unit HS TJ Administration Ondansetron HCl 4 mg 05/29/18 13:09 Zofran Injection IVPUSH Q6H PRN NAUSEA Oxycodone HCl 5 mg 05/29/18 13:03 Roxicodone - PO Q3H PRN PAIN LEVEL 1-5 Oxycodone HCl 10 mg 05/29/18 13:03 11/14/18 09:43 Roxicodone - PO 10 mg Q3H PRN Administration PAIN LEVEL 6-10 Pantoprazole Sodium 40 mg 05/30/18 10:00 05/31/18 09:42 Protonix - PO 40 mg DAILY TJ Administration Ranitidine HCl 150 mg 05/29/18 22:00 05/31/18 09:43 Zantac - PO 150 mg BID TJ Administration Rosuvastatin Calcium 10 mg 05/29/18 22:00 05/30/18 21:13 Crestor - PO 10 mg HS TJ Administration Senna/Docusate Sodium 2 tablet 05/29/18 22:00 05/31/18 09:43 Pericolace - PO 2 tablet BID TJ Administration Tramadol HCl 50 mg 05/29/18 12:00 05/31/18 06:14 Ultram - PO 50 mg Q6H TJ Administration ASSESSMENT/PLAN: 67 year-old female with a PMH significant for HTN, HLD, CAD s/p stents, asthma/ COPD, GERD, IDDM, OA, nephrolithiasis, and recurrent UTIs. Patient is s/p left LYSSA TKA on 05/29/18. Patient noted to be hypotensive, hyponatremic, and with an elevated creatinine. Left knee osteoarthritis s/p LYSSA TKA on 05/29/18 --POD #2 Hypotension --BP stable, no further orthostatic episodes --resume ToprolXL Hyponatremia --resolved ELKE --resolved, Cr 1.2 today --resume metformin, ramipril Asthma/COPD --continue duonebs, albuterol IH GERD --continue ranitidine Hypomagnesemia --replete Dispo: We will sign off on this patient. Please call us if we can be of any further assistance. Thank you for this consultative opportunity. Visit type - Emergency Visit Emergency Visit: Yes ED Registration Date: 05/29/18 Care time: The patient presented to the Emergency Department on the above date and was hospitalized for further evaluation of their emergent condition. - New Patient This patient is new to me today: No - Critical Care Critical Care patient: No
[2018-05-31] MEDS ORDERED: MAGNESIUM SULF 50% (8.12 MEQ/2 ML-1 GM VIAL) IVPB ONE (12:54)
[2018-05-31] MEDS: SODIUM CHLORIDE 1,000 ML IV SCH (13:13)
[2018-05-31] MEDS ORDERED: MAGNESIUM SULFATE IN WATER 2 GM/50 ML IVPB IVPB ONE (13:15)
[2018-05-31 13:46] LABS: BILIRUBIN,TOTAL 0.6 mg/dl (0.2-1.0); TOT PROT 5.2 g/dl (6.4-8.3)
[2018-05-31 13:47] LABS: BILIRUBIN,DIRECT 0.1 mg/dL (0.0-0.3)
--- NOTE | 2018-05-31 17:54 | CONSULT ---
Consult - text type - Consultation Consultation Note: Renal Consult for ELKE This is a 67 year old woman with hx of Hypertension, Hyperlipidemia, CAD s/p stents, COPD, GERD, IDDM, OA, nephrolithiasis who presented for [facility] TKA with ELKE. s/p Knee replacement on 05/29. Was getting NSAIDs in addition to ACEi. BP was noted to be low the day following surgery. No flank pain, rash, fever, chills, N/V/D. Hx of kidney stones in the past. PMHx: as above Allergies: NKDA Family Hx: NC Social Hx: No T/A/D ROS: As per HPI Home Medications Medication Instructions Recorded Metoprolol Succinate 50 mg PO DAILY 01/14/14 Metformin HCl [Glucophage] 1,000 mg PO BID 08/15/15 Aspirin [ASA -] 81 mg PO DAILY 08/30/16 Rosuvastatin [Crestor -] 10 mg PO DAILY 08/30/16 Insulin Lispro [Humalog] 16 unit SQ AC PRN 09/23/16 Albuterol Sulfate [Proventil HFA 1 - 2 inh PO TID PRN 11/07/17 Inhaler -] Clopidogrel Bisulfate [Plavix -] 75 mg PO DAILY 11/07/17 Insulin Degludec [Tresiba 125 unit SQ HS 11/07/17 Flextouch U-100] Ramipril [Altace] 10 mg PO DAILY 11/07/17 Liraglutide [Victoza -] 1.6 mg SQ DAILY@0700 04/20/18 Ranitidine [Zantac -] 150 mg PO BID 04/20/18 Gabapentin 300 mg PO HS PRN 05/29/18 Vital Signs Temperature 97.6 F 05/31/18 09:40 Pulse Rate 81 05/31/18 13:20 Respiratory Rate 18 05/31/18 09:40 Blood Pressure 129/60 05/31/18 13:40 O2 Sat by Pulse Oximetry (%) 92 L 05/31/18 13:40 Intake & Output 05/28/18 05/29/18 05/30/18 05/31/18 23:59 23:59 23:59 23:59 Intake Total 1250 2850 950 Output Total 400 Balance 850 2850 950 Weight 124.738 kg NAD awake and alert Neck supple, no JVD RRR, No M/R CTA, dec BS no rales soft NT./ND trace edema in LE CBC, BMP 05/31/18 08:05 05/31/18 08:53 Laboratory Tests 11/08/17 11/08/17 11/09/17 00:00 06:47 06:57 Creatinine 1.7 H 1.4 H 1.1 H 05/30/18 05/31/18 05/31/18 07:36 08:05 08:53 Creatinine 2.2 H 2.1 H 2.0 H Laboratory Tests 05/31/18 05/31/18 08:53 08:53 Calcium 7.6 L Magnesium 1.4 L Albumin 3.0 L Current Medications Acetaminophen (Tylenol -) 650 mg PO Q6H [facility] Stop: 06/01/18 18:29 Last Admin: 05/31/18 13:28 Dose: 650 mg Al Hydroxide/Mg Hydroxide (Mylanta Oral Suspension -) 30 ml PO Q4H PRN PRN Reason: DYSPEPSIA Albuterol Sulfate (Ventolin Hfa Inhaler -) 1 puff IH TID PRN PRN Reason: WHEEZING Albuterol/Ipratropium (Duoneb -) 1 amp NEB RQID [facility] Last Admin: 05/31/18 13:29 Dose: 1 amp Apixaban (Eliquis -) 2.5 mg PO BID [facility] Last Admin: 05/31/18 09:43 Dose: 2.5 mg Ascorbic Acid (Vitamin C -) 500 mg PO BID [facility] Last Admin: 05/31/18 09:43 Dose: 500 mg Gabapentin (Neurontin -) 300 mg PO BID [facility] Stop: 06/01/18 21:59 Last Admin: 05/31/18 09:43 Dose: 300 mg Sodium Chloride (Normal Saline -) 1,000 mls @ 125 mls/hr IV ASDIR [facility] Last Admin: 05/31/18 13:13 Dose: Not Given Insulin Aspart (Novolog Vial Sliding Scale -) 1 vial SQ ACHS [facility]; Protocol Last Admin: 05/31/18 11:25 Dose: 4 unit Liraglutide (Victoza -) 1.6 mg SQ DAILY@0700 [facility] Last Admin: 05/31/18 06:26 Dose: 1.6 mg Magnesium Hydroxide (Milk Of Magnesia -) 30 ml PO PRN PRN PRN Reason: CONSTIPATION Metoprolol Succinate (Toprol Xl -) 50 mg PO DAILY [facility] Last Admin: 05/30/18 10:06 Dose: Not Given Multivitamins/Minerals/Vitamin C (Tab-A-Vit -) 1 tab PO DAILY [facility] Last Admin: 05/31/18 09:42 Dose: 1 tab Non-Formulary Medication (Insulin Degludec [Tresiba Flextouch U-100]) 125 unit SQ HS [facility] Last Admin: 05/30/18 21:13 Dose: 125 unit Ondansetron HCl (Zofran Injection) 4 mg IVPUSH Q6H PRN PRN Reason: NAUSEA Oxycodone HCl (Roxicodone -) 5 mg PO Q3H PRN PRN Reason: PAIN LEVEL 1-5 Oxycodone HCl (Roxicodone -) 10 mg PO Q3H PRN PRN Reason: PAIN LEVEL 6-10 Last Admin: 05/31/18 09:43 Dose: 10 mg Pantoprazole Sodium (Protonix -) 40 mg PO DAILY [facility] Last Admin: 05/31/18 09:42 Dose: 40 mg Ranitidine HCl (Zantac -) 150 mg PO BID [facility] Last Admin: 05/31/18 09:43 Dose: 150 mg Rosuvastatin Calcium (Crestor -) 10 mg PO HS [facility] Last Admin: 05/30/18 21:13 Dose: 10 mg Senna/Docusate Sodium (Pericolace -) 2 tablet PO BID [facility] Last Admin: 05/31/18 09:43 Dose: 2 tablet Tramadol HCl (Ultram -) 50 mg PO Q6H [facility] Last Admin: 05/31/18 13:29 Dose: 50 mg 67 year old woman with hx of Hypertension, Hyperlipidemia, CAD s/p stents, COPD , GERD, IDDM, OA, nephrolithiasis who presented for LYSSA TKA with ELKE. #ELKE secondary to medication induced renal hypoprofuison vs. obstruction #Knee replacement #Hypertension now hypotensive #Mild Hyperkalemia #Anemia Agree with holding ACEi and NSAIDs as they could be cause of renal injury continue moderate IVF with monitoring of respiratory status check FeNa, Renal US Trend renal function and electrolytes [id number] low potassium diet Avoid NSAIDs hold ACEi until renal function back at baseline trend H/H, no acute indication for transfusion Thank you Will follow Efe Méndez DO
[2018-05-31] MEDS ORDERED: SODIUM CHLORIDE 1,000 ML IV SCH (18:20)
[2018-05-31] MEDS: INSULIN DEGLUDEC U SQ SCH ×2 (18:48→21:29)
[2018-05-31 21:00] LABS: URINE APPEARANCE Slightly; URINE BILIRUBIN Negative (NEGATIVE); URINE COLOR Yellow; URINE GLUCOSE (UA) Negative (NEGATIVE); URINE KETONE Negative (NEGATIVE); URINE LEUK ESTERASE Negative (NEGATIVE); URINE NITRITE Negative (NEGATIVE); URINE PROTEIN Trace (NEGATIVE); URINE UROBILINOGEN 0.2 (0.2-1.0)
[2018-05-31 21:03] LABS: URINE RBC >100 /hpf (0-3)
[2018-05-31 21:04] LABS: EPI CELLS FEW /HPF
[2018-05-31] MEDS: ROSUVASTATIN CA 10 MG TABLET (FP) PO SCH (21:28)
[2018-06-01] MEDS: traMADol HCL 50 MG TABLET PO SCH ×3 (01:00→12:09)
[2018-06-01] MEDS: ACETAMINOPHEN 325 MG TABLET (FP) PO SCH ×3 (01:00→12:09)
[2018-06-01] MEDS: LIRAGLUTIDE 0.6 MG/0.1 ML PEN.INJCTR SQ SCH (06:33)
[2018-06-01] MEDS: INSULIN SLIDING SCALE (NOVOLOG) 1 VIAL SQ SCH ×2 (06:33→10:57)
[2018-06-01 06:54] VITALS: BP 137/56; PULSE 90
[2018-06-01] MEDS ORDERED: REFRIGERATED ANITBIOTICS ONE ×3 (07:38→07:46)
[2018-06-01 08:29] LABS: BASO % 0.4 % (0-2.0); EOS % 1.4 % (0-4.5); HEMATOCRIT 27.2 % (32.4-45.2); HEMOGLOBIN 8.8 GM/dl (10.7-15.3); LYMPH % 28.7 % (8-40); MCH 28.6 pg (25.7-33.7); MCHC 32.4 g/dl (32.0-36.0); MEAN CELL VOLUME 88.3 fl (80-96); MEAN PLT VOLUME 8.4 fl (7.5-11.1); MONO % 11.4 % (3.8-10.2); NEUT % 58.1 % (42.8-82.8); PLATELET COUNT 170 K/MM3 (134-434); RBC 3.08 M/mm3 (3.60-5.2); RDW 13.3 % (11.6-15.6); WHITE BLOOD COUNT 10.4 K/mm3 (4.0-10.8)
[2018-06-01 08:43] LABS: ALK PHOS 42 U/L (32-92); ANION GAP 8 MMOL/L (8-16); BILIRUBIN,TOTAL 0.8 mg/dl (0.2-1.0); BLOOD UREA NITROGEN 48 mg/dl (7-18); CALCIUM 7.9 mg/dl (8.4-10.2); CHLORIDE 108 mmol/L (98-107); CO2 21 mmol/L (22-28); CREATININE 1.2 mg/dl (0.6-1.3); GLUCOSE,RANDOM 132 mg/dl (74-106); MAGNESIUM 1.7 mg/dL (1.8-2.4); PHOSPHOROUS 2.9 mg/dl (2.5-4.6); POTASSIUM 5.1 mmol/L (3.5-5.1); SGOT/AST 36 U/L (10-42); SGPT/ALT 11 U/L (10-40); SODIUM 137 mmol/L (136-145); TOT PROT 5.3 g/dl (6.4-8.3)
[2018-06-01] MEDS: RANITIDINE HCL 150 MG TABLET (FP) PO SCH (09:10)
[2018-06-01] MEDS: APIXABAN 2.5 MG TABLET PO SCH (09:10)
[2018-06-01] MEDS: MULTIVITAMINS (DAILY MVI) TABLET (FP) PO SCH (09:10)
[2018-06-01] MEDS: SENNOSIDES/DOCUSATE COMBO (SENNA PLUS) TABLET (UD) PO SCH (09:10)
[2018-06-01] MEDS: PANTOPRAZOLE 40 MG TABLET (FP) PO SCH (09:10)
[2018-06-01] MEDS: oxyCODONE HCL 5 MG TABLET PO PRN (09:11)
[2018-06-01] MEDS: GABAPENTIN 300 MG CAPSULE (FP) PO SCH (09:12)
[2018-06-01] MEDS: ALBUTEROL SO4 2.5/IPRATROPIUM 0.5 INH SOL 3 ML VIAL.NEB. NEB SCH ×2 (09:12→12:09)
[2018-06-01] MEDS: ASCORBIC ACID 500 MG TABLET (FP) PO SCH (09:12)
[2018-06-01] MEDS ORDERED: MAGNESIUM OXIDE 400 MG TABLET (FP) PO ONE (10:30)
[2018-06-01] MEDS ORDERED: MAGNESIUM SULF 50% (8.12 MEQ/2 ML-1 GM VIAL) IVPB ONE (10:40)
--- NOTE | 2018-06-01 10:46 | PN ---
Progress Note (short form) - Note Progress Note: Renal follow up for ELKE Pt seen and examined at the bedside no acute complaints had more pain in knee this am but helped with pain meds making urine no sob, cp, abd pain, N/V/D Vital Signs Temperature 97.6 F 06/01/18 06:53 Pulse Rate 90 06/01/18 06:53 Respiratory Rate 18 06/01/18 08:19 Blood Pressure 137/56 L 06/01/18 06:53 O2 Sat by Pulse Oximetry (%) 92 L 06/01/18 08:19 Intake & Output 05/29/18 05/30/18 05/31/18 06/01/18 23:59 23:59 23:59 23:59 Intake Total 1250 2850 1350 Output Total 400 Balance 850 2850 1350 Weight 124.738 kg NAD trace LE edema CBC, BMP 06/01/18 07:58 06/01/18 07:58 Current Medications Acetaminophen (Tylenol -) 650 mg PO Q6H [facility] Stop: 06/01/18 18:29 Last Admin: 06/01/18 06:32 Dose: 650 mg Al Hydroxide/Mg Hydroxide (Mylanta Oral Suspension -) 30 ml PO Q4H PRN PRN Reason: DYSPEPSIA Albuterol Sulfate (Ventolin Hfa Inhaler -) 1 puff IH TID PRN PRN Reason: WHEEZING Albuterol/Ipratropium (Duoneb -) 1 amp NEB RQID [facility] Last Admin: 06/01/18 09:12 Dose: 1 amp Apixaban (Eliquis -) 2.5 mg PO BID [facility] Last Admin: 06/01/18 09:10 Dose: 2.5 mg Ascorbic Acid (Vitamin C -) 500 mg PO BID [facility] Last Admin: 06/01/18 09:12 Dose: 500 mg Gabapentin (Neurontin -) 300 mg PO BID [facility] Stop: 06/01/18 21:59 Last Admin: 06/01/18 09:12 Dose: 300 mg Insulin Aspart (Novolog Vial Sliding Scale -) 1 vial SQ ACHS [facility]; Protocol Last Admin: 06/01/18 06:33 Dose: Not Given Liraglutide (Victoza -) 1.6 mg SQ DAILY@0700 [facility] Last Admin: 06/01/18 06:33 Dose: 1.6 mg Magnesium Hydroxide (Milk Of Magnesia -) 30 ml PO PRN PRN PRN Reason: CONSTIPATION Magnesium Sulfate (Magnesium Sulfate) 2 gm IVPB ONCE ONE Stop: 06/01/18 10:41 Metformin HCl (Glucophage -) 1,000 mg PO BID@0700,1630 [facility] Metoprolol Succinate (Toprol Xl -) 50 mg PO DAILY [facility] Multivitamins/Minerals/Vitamin C (Tab-A-Vit -) 1 tab PO DAILY [facility] Last Admin: 06/01/18 09:10 Dose: 1 tab Non-Formulary Medication (Insulin Degludec [Tresiba Flextouch U-100]) 125 unit SQ HS [facility] Last Admin: 05/31/18 21:29 Dose: 125 unit Ondansetron HCl (Zofran Injection) 4 mg IVPUSH Q6H PRN PRN Reason: NAUSEA Oxycodone HCl (Roxicodone -) 5 mg PO Q3H PRN PRN Reason: PAIN LEVEL 1-5 Oxycodone HCl (Roxicodone -) 10 mg PO Q3H PRN PRN Reason: PAIN LEVEL 6-10 Last Admin: 06/01/18 09:11 Dose: 10 mg Pantoprazole Sodium (Protonix -) 40 mg PO DAILY [facility] Last Admin: 06/01/18 09:10 Dose: 40 mg Ramipril (Altace -) 10 mg PO DAILY [facility] Ranitidine HCl (Zantac -) 150 mg PO BID [facility] Last Admin: 06/01/18 09:10 Dose: 150 mg Rosuvastatin Calcium (Crestor -) 10 mg PO HS [facility] Last Admin: 05/31/18 21:28 Dose: 10 mg Senna/Docusate Sodium (Pericolace -) 2 tablet PO BID [facility] Last Admin: 06/01/18 09:10 Dose: 2 tablet Tramadol HCl (Ultram -) 50 mg PO Q6H [facility] Last Admin: 06/01/18 06:31 Dose: 50 mg 67 year old woman with hx of Hypertension, Hyperlipidemia, CAD s/p stents, COPD , GERD, IDDM, OA, nephrolithiasis who presented for LYSSA TKA with ELKE. #ELKE secondary to medication induced renal hypoprofuison vs. obstruction #Knee replacement #Hypertension now hypotensive #Mild Hyperkalemia #Anemia Renal function now improved to baseline can discontinue all IVF at this time would hold ACEi today (BP is at goal) and resume at lower dose (Ramipirl 5mg) tomorrow will require repeat BMP in 3-4 days would not start NSAIDs for pain control Advised to maintain good oral intake Trend H/H US of the kidney showed non-obstructing stone, no acute intervention needed Thank you Stable for discharge from renal perspective please call if any questions or concerns Efe Méndez DO
--- NOTE | 2018-06-01 11:45 | DS ---
Physical Examination Vital Signs: Vital Signs Temperature 97.6 F 06/01/18 06:53 Pulse Rate 90 06/01/18 06:53 Respiratory Rate 18 06/01/18 08:19 Blood Pressure 137/56 L 06/01/18 06:53 O2 Sat by Pulse Oximetry (%) 92 L 06/01/18 08:19 Labs: CBC, BMP 06/01/18 07:58 06/01/18 07:58 Discharge Summary Reason For Visit: OSTEOARTHRITIS Current Active Problems Osteoarthritis of left knee (Acute) Procedures: Principal: left LYSSA TKA Hospital Course: Admitted for elective surgery. Procedure performed without complications. Pt received postoperative antibiotic prophylaxis and DVT ppx. Ambulated with physical therapy. Had acute renal insufficiency postop which was worked up and treated by hospitalist and renal consult and which subsequently resolved to baseline. Stable for discharge to SNF with outpatient followup. Condition: Stable - Instructions Diet, Activity, Other Instructions: Dr. Collins - Knee Replacement Instructions Keep the Aquacel dressing on until removed by Dr. Collins in 10-14 days - it is antibacterial and waterproof and you can shower with it on. DO NOT REMOVE DRESSING AT REHAB FACILITY WITHOUT CONTACTING DR. COLLINS FIRST!* * Call the office for a follow-up appointment with Dr. Collins in 10-14 days. Call your hydraulic elevator constructor for a follow-up appointment within 30 days to discuss a plan to restart your aspirin and Plavix (see below). Take ELIQUIS 2.5mg twice daily for 35 days to prevent blood clots in your legs. DO NOT TAKE ASPIRIN AND PLAVIX WHILE YOU ARE ON ELIQUIS. ELIQUIS IS A STRONGER BLOOD THINNER. BEFORE YOU ARE FINISHED WITH THE 35 DAYS OF ELIQUIS, SEE YOUR SEAFOOD TECHNOLOGY SPECIALIST TO COORDINATE RESTARTING THE ASPIRIN AND PLAVIX. Take one Pantoprazole 40mg daily for 6 weeks to protect against heartburn and ulcers. Take Cephalexin (antibiotic) 3x/day for 10 days to help prevent skin infection. Take a multivitamin, stool softener, and extra Vitamin C supplement daily. For pain: *Mild pain (1-3/10): Take 1 Tramadol tablet every 4 hours as needed. Moderate pain (4-6/10): Take 1 Tramadol tablet and 1 Percocet tablet every 4 hours as needed. Severe pain (7-10/10): Take 1 Tramadol tablet and 2 Percocet tablets every 4 hours as needed. Activity: You can put as much weight on the operative leg as you want. Right after you get home, there will be a physical therapist coming to your house to help you walk around and bend/straighten your knee. After your follow-up appointment, you will be sent for more intensive outpatient physical therapy which will include machines and equipment that the home therapist cannot bring to your house. Always use a walker or cane for balance and to prevent falls. Expect to see swelling/bruising from the operative site all the way down to your toes. Wear the compression stocking on the operative side during the day to minimize how much swelling there is in your foot/ankle. Don't wear the stocking at night. You don't have to wear a stocking on the other side. Referrals: Jamal Terry MD [Staff Physician] - 1 Week Disposition: [facility] FACILITY - Home Medications Comprehensive Discharge Medication List: Ambulatory Orders Metoprolol Succinate 50 mg PO DAILY 01/14/14 Metformin HCl [Glucophage] 1,000 mg PO BID 08/15/15 Rosuvastatin [Crestor -] 10 mg PO DAILY 08/30/16 Insulin Lispro [Humalog] 16 unit SQ AC PRN 09/23/16 Albuterol Sulfate [Proventil HFA Inhaler -] 1 - 2 inh PO TID PRN 11/07/17 Insulin Degludec [Tresiba Flextouch U-100] 125 unit SQ HS 11/07/17 Ramipril [Altace] 10 mg PO DAILY 11/07/17 Liraglutide [Victoza -] 1.6 mg SQ DAILY@0700 04/20/18 Ranitidine [Zantac -] 150 mg PO BID 04/20/18 Gabapentin 300 mg PO HS PRN 05/29/18 Albuterol 2.5/Ipratropium 0.5 [Duoneb -] 1 amp NEB RQID amp 06/01/18 Apixaban [Eliquis -] 2.5 mg PO BID #0 tablet 06/01/18 Ascorbic Acid [Vitamin C -] 500 mg PO BID tablet 06/01/18 Cephalexin Monohydrate [Keflex -] 500 mg PO TID #30 capsule 06/01/18 Insulin Sliding Scale [Novolog Vial Sliding Scale -] 1 vial SQ ACHS units 06/01 Mag Hydrox/Al Hydrox/Simeth [Mylanta Oral Suspension -] 30 ml PO Q4H PRN cup Magnesium Hydrox 2400MG/30Ml [Milk of Magnesia -] 30 ml PO PRN PRN cup Multivitamins [Multivit ([facility] Formulary)] 1 tab PO DAILY tab 06/01/18 Oxycodone HCl/Acetaminophen [Percocet 5-325 mg Tablet] 1 - 2 tab PO Q4H PRN #60 tablet MDD 10 06/01/18 Pantoprazole Sodium [Protonix -] 40 mg PO DAILY tablet.ec 06/01/18 Pantoprazole Sodium [Protonix -] 40 mg PO DAILY #40 tablet.ec 06/01/18 Sennosides/Docusate Sodium [Pericolace -] 2 tablet PO BID tablet 06/01/18 traMADol HCL [Ultram -] 50 mg PO Q4H PRN #42 tablet MDD 6 06/01/18
--- NOTE | 2018-06-01 11:45 | PATH ---
Surgical Pathology Report Patient Name: VANDANA GUILLAUME Med. Rec. #: [id number] /Age/Gender: 1950 (Age: 67) / F Account: [id number] Location: [facility] MED-SURG Taken: 05/29/2018 Received: 05/29/2018 Reported: 06/01/2018 Physicians: Augustus Mcnamara M.D. Specimen(s) Received LEFT KNEE Clinical History Left knee osteoarthritis Final Diagnosis BONE AND TISSUE, KNEE, LEFT, TOTAL KNEE REPLACEMENT MAKOPLASTY: BONE WITH DEGENERATIVE JOINT DISEASE, DENSE FIBROCONNECTIVE TISSUE, AND REACTIVE SYNOVIUM. Electronically Signed Elizabeth Davenport M.D. Gross Description Received in formalin labeled "left knee bone and tissue," is a 13.5 x 9.5 x 2.0 cm aggregate of multiple portions of bone and soft tissue, consistent with knee bones. No areas of eburnation are identified. The articular surfaces are holman-yellow and diffusely granular. The underlying trabecular bone is yellow and hard. Yarn Examiner sections are submitted in one cassette, following decalcification. 05/30/201805/30/2018
--- NOTE | 2018-06-01 12:27 | PN ---
Progress Note (short form) - Note Progress Note: Pt seen and examined. Doing well. Pain well controlled. Selected Entries 05/31/18 06/01/18 06/01/18 21:50 06:53 08:19 Temperature 97.6 F 97.6 F Pulse Rate 79 90 Respiratory 18 18 Rate Blood Pressure 138/51 L 137/56 L O2 Sat by Pulse 92 L 92 L Oximetry (%) Oxygen Delivery Room Air Room Air Method Laboratory Tests 06/01/18 06/01/18 06/01/18 06:24 07:58 07:58 WBC 10.4 Hgb 8.8 L Hct 27.2 L Plt Count 170 Sodium 137 Potassium 5.1 Chloride 108 H Carbon Dioxide 21 L Anion Gap 8 BUN 48 H Creatinine 1.2 POC Glucometer 119 Random Glucose 132 H D Calcium 7.9 L Phosphorus 2.9 Magnesium 1.7 L Total Bilirubin 0.8 AST 36 ALT 11 Alkaline Phosphatase 42 Total Protein 5.3 L Albumin 3.0 L 06/01/18 10:11 WBC Hgb Hct Plt Count Sodium Potassium Chloride Carbon Dioxide Anion Gap BUN Creatinine POC Glucometer 222 Random Glucose Calcium Phosphorus Magnesium Total Bilirubin AST ALT Alkaline Phosphatase Total Protein Albumin Afebrile Gen: NAD LLE: c/d/i, NVID A/P 67yo female POD#3 s/p L LYSSA TKA 1. PT/OOB - WBAT LLE 2. Eliquis for DVT ppx 3. Renal function improved back to baseline. 4. D/C to SNF today. F/U in 10-14 days in office; call for appt. 5. Hospitalist and Renal consults appreciated.
[2018-06-02] MEDS ORDERED: RAMIPRIL 5 MG CAPSULE (FP) PO SCH ×2 (10:00)
[2018-06-02] MEDS ORDERED: metFORMIN HCL 500 MG TABLET (FP) PO SCH (16:30)
== END 2018-06-01 12:47 | DRG 470 ==
LOC: FM/S 06:08
PROVIDERS: ADMIT Student in an Organized Health Care Education/Training Program; ATTEND Student in an Organized Health Care Education/Training Program
PROC: 8E0YXBZ Computer Assisted Procedure of Lower Extremity (ICD-10-PCS; 2018-05-29)
PROC: 0SRD0JA Replacement of Left Knee Joint with Synthetic Substitute, Uncemented, Open Approach (ICD-10-PCS; principal; 2018-05-29 09:14)
DX: M17.12 Unilateral primary osteoarthritis, left knee (principal); N17.9 Acute kidney failure, unspecified; E87.1 Hypo-osmolality and hyponatremia; I25.10 Atherosclerotic heart disease of native coronary artery without angina pectoris; I10 Essential (primary) hypertension; E78.5 Hyperlipidemia, unspecified; J45.909 Unspecified asthma, uncomplicated; K21.9 Gastro-esophageal reflux disease without esophagitis; E11.9 Type 2 diabetes mellitus without complications; J44.9 Chronic obstructive pulmonary disease, unspecified; D64.9 Anemia, unspecified; E83.42 Hypomagnesemia; E87.5 Hyperkalemia; Z87.442 Personal history of urinary calculi; Z79.4 Long term (current) use of insulin; Z87.891 Personal history of nicotine dependence; Z95.5 Presence of coronary angioplasty implant and graft
CPT/HCPCS: 36415; 71045-TC-FY; 73560-TC-LT-FY; 76775-TC; 76856-TC; 80048; 80053; 80076; 81003; 81015; 82570; 82962; 83735; 84100; 84156; 84300; 85025; 85027; 86803; 87389; 88305-TC; 88311-TC; 94640; 94760; 97116-GP; J0131; J1100; J7030

== ENCOUNTER 2020-10-07 05:32 | Day surgery (SDC) | payer OTHER ==
[2020-10-06 09:49] VITALS: BMI 40.1
[2020-10-07] MEDS ORDERED: SUCCINYLCHOLINE CHLORIDE 200 MG/10 ML SYRINGE ONE (08:32)
[2020-10-07] MEDS ORDERED: PROPOFOL 20 ML ONE ×2 (08:32)
[2020-10-07] MEDS ORDERED: oxyCODONE HCL 5 MG TABLET PO PRN (11:22)
[2020-10-07] MEDS ORDERED: IBUPROFEN 600 MG TABLET (FP) PO PRN (11:22)
[2020-10-07] MEDS ORDERED: ONDANSETRON 4 MG/2 ML VIAL IVPUSH PRN (11:22)
[2020-10-07] MEDS ORDERED: IBUPROFEN 800 MG/8 ML IJ IVPB PRN (11:22)
[2020-10-07] MEDS ORDERED: ALBUTEROL SO4 0.083% IH SOL 2.5 MG/3 ML VIAL.NEB. NEB ONE ×2 (11:28→11:35)
[2020-10-07] MEDS ORDERED: ELECTROLYTE-148 SOLN 1,000 ML IV SCH (11:30)
[2020-10-07 13:26] VITALS: TEMP 97.1
[2020-10-07 15:42] VITALS: BP 125/68; PULSE 94
== END 2020-10-07 14:30 | disposition home or self-care (01) ==
LOC: JASU-SURG 05:32
PROVIDERS: ATTEND Obstetrics & Gynecology
PROC: 0UB98ZX Excision of Uterus, Via Natural or Artificial Opening Endoscopic, Diagnostic (ICD-10-PCS; 2020-10-07)
PROC: 0UDB7ZX Extraction of Endometrium, Via Natural or Artificial Opening, Diagnostic (ICD-10-PCS; 2020-10-07)
PROC: 0U5B8ZZ Destruction of Endometrium, Via Natural or Artificial Opening Endoscopic (ICD-10-PCS; principal; 2020-10-07 09:00)
PROC: 0UDB8ZX Extraction of Endometrium, Via Natural or Artificial Opening Endoscopic, Diagnostic (ICD-10-PCS; 2020-10-07 09:00)
DX: N95.0 Postmenopausal bleeding (principal); N84.0 Polyp of corpus uteri; Q51.3 Bicornate uterus; E66.01 Morbid (severe) obesity due to excess calories
CPT/HCPCS: 71046-TC-FY; 82962; 94010; 94760